=== PATIENT | male | born 1950 | race Caucasian/White ===

== ENCOUNTER → 2017-11-02 10:53 | Outpatient (CLI) | payer MEDICARE, OTHER, SELFPAY ==
[2017-11-02 13:01] LABS: Iron 132 ug/dL (50-175); Total Iron Binding Capacity 381 ug/dL (250-450); Transferrin Sat 35 % (20-55)
[2017-11-02 13:04] LABS: Abs Immature Grans 0.02 k/cumm (0.0-0.09); Absolute Basophil Count 0.04 k/cumm (0.0-0.2); Absolute Eosinophil Count 0.35 k/cumm (0.0-0.7); Absolute Lymphocyte Count 2.35 k/cumm (1.2-3.4); Absolute Monocyte Count 0.51 k/cumm (0.11-0.7); Absolute Neutrophil Count 3.22 k/cumm (1.2-6.7); Basophils % 0.6; Eosinophils % 5.4; HCT 43.2 % (40.0-50.0); HGB 15.1 g/dL (13.5-17.5); Immature Grans % 0.3; Lymphocytes % 36.2; Mean Corpuscular Hemoglobin 29.7 pg (27.0-33.0); Mean Platelet Volume 10.7 fL (8.0-11.0); Monocytes % 7.9; Neutrophils % 49.6; Platelet Count 159 x1000/uL (130-400); RBC 5.08 m/cumm (4.50-6.00); RBC Distribution Width 14.1 % (11.8-14.1); White Blood Cell Count 6.49 k/cumm (4.4-10.8)
[2017-11-02 13:23] LABS: ALT 58 U/L (12-78); AST 32 U/L (15-37); Albumin 3.6 g/dL (3.4-5.0); Alkaline Phosphatase 96 U/L (46-116); Anion Gap 8.6 mmol/L (3-11); BUN 22 mg/dL (7-18); Bilirubin, Total 0.7 mg/dL (0.2-1.0); CO2 27.4 mmol/L (21.0-32.0); CREATININE 0.87 mg/dL (0.70-1.30); Calcium 8.6 mg/dL (8.5-10.1); Chloride 106 mmol/L (98-107); Ferritin 83 ng/mL (8-388); Folate 8.4 ng/mL (8.6-20.0); Glucose 108 mg/dL (70-100); Potassium 4.4 mmol/L (3.5-5.1); Sodium 142 mmol/L (136-145); Total Protein 7.2 g/dL (6.4-8.2); Vitamin B12 593 pg/mL (193-986)
[2017-11-02 14:31] LABS: Hemoglobin A1C 5.8 % (4.5-6.2)
[2017-11-02 14:48] LABS: ESR 21 MM/HR (1-20)
[2017-11-02 22:02] LABS: CRP, High Sensitivity 2.22 mg/L
== END ==
PROVIDERS: PCP Internal Medicine; Visit Provider Internal Medicine
DX: D64.9 Anemia, unspecified (principal); I10 Essential (primary) hypertension; E11.9 Type 2 diabetes mellitus without complications; E83.119 Hemochromatosis, unspecified; M17.11 Unilateral primary osteoarthritis, right knee
CPT/HCPCS: 36415; 80053; 85652; 86141; 82607; 82728; 82746; 83036; 83540; 83550; 85025

== ENCOUNTER 2018-02-04 08:38 | Outpatient (CLI) | payer MEDICARE, SELFPAY ==
[2018-02-04 11:51] LABS: Ferritin 92 ng/mL (8-388)
== END 2018-02-04 08:58 ==
PROVIDERS: PCP Internal Medicine; Visit Provider Internal Medicine
DX: E83.110 Hereditary hemochromatosis (principal)
CPT/HCPCS: 36415; 82728

== ENCOUNTER 2018-04-19 01:33 | Outpatient (CLI) | payer MEDICARE, SELFPAY ==
[2018-04-19 12:43] LABS: HCT 44.9 % (40.0-50.0); HGB 15.8 g/dL (13.5-17.5)
== END 2018-04-19 01:53 ==
PROVIDERS: PCP Internal Medicine; Visit Provider Internal Medicine
DX: E11.9 Type 2 diabetes mellitus without complications (principal); R35.1 Nocturia; E83.119 Hemochromatosis, unspecified; Z12.5 Encounter for screening for malignant neoplasm of prostate; D35.1 Benign neoplasm of parathyroid gland
CPT/HCPCS: 36415; 84153; 83036; 85014; 85018

== ENCOUNTER 2018-07-06 01:27 | Outpatient (CLI) | payer MEDICARE, SELFPAY ==
[2018-07-06 12:01] LABS: ALT 61 U/L (12-78); AST 30 U/L (15-37); Albumin 3.6 g/dL (3.4-5.0); Alkaline Phosphatase 88 U/L (46-116); Anion Gap 9.7 mmol/L (3-11); BUN 19 mg/dL (7-18); CO2 27.3 mmol/L (21.0-32.0); Chloride 107 mmol/L (98-107); Ferritin 112 ng/mL (8-388); Glucose 121 mg/dL (70-100); Potassium 4.2 mmol/L (3.5-5.1); Sodium 144 mmol/L (136-145); Total Protein 7.1 g/dL (6.4-8.2)
[2018-07-06 12:02] LABS: Folate > 20.0 ng/mL (8.6-20.0)
== END 2018-07-06 01:47 ==
PROVIDERS: PCP Internal Medicine; Visit Provider Internal Medicine
DX: E83.119 Hemochromatosis, unspecified (principal); E11.9 Type 2 diabetes mellitus without complications; I10 Essential (primary) hypertension
CPT/HCPCS: 36415; 80053; 82728; 82746

== ENCOUNTER 2018-07-20 04:22 | Outpatient (CLI) | payer MEDICARE, OTHER, SELFPAY ==
[2018-07-20 11:27] LABS: TSH (W/Ref FT4) 0.85 uIU/mL (0.358-3.74)
== END 2018-07-20 04:42 ==
PROVIDERS: PCP Internal Medicine; Visit Provider Internal Medicine
DX: R00.0 Tachycardia, unspecified (principal)
CPT/HCPCS: 36415; 84443

== ENCOUNTER 2018-12-22 02:22 | Outpatient (CLI) | payer MEDICARE, OTHER, SELFPAY ==
[2018-12-22 11:54] LABS: Iron 149 ug/dL (50-175); Total Iron Binding Capacity 352 ug/dL (250-450); Transferrin Sat 42 % (20-55)
[2018-12-22 12:02] LABS: Hemoglobin A1C 5.9 % (4.5-6.2)
[2018-12-22 12:10] LABS: ALT 57 U/L (16-63); AST 35 U/L (15-37); Albumin 3.7 g/dL (3.4-5.0); Alkaline Phosphatase 88 U/L (46-116); Anion Gap 8.3 mmol/L (3-11); BUN 21 mg/dL (7-18); Bilirubin, Total 1.4 mg/dL (0.2-1.0); CO2 27.7 mmol/L (21.0-32.0); CREATININE 0.95 mg/dL (0.70-1.30); Calcium 8.9 mg/dL (8.5-10.1); Chloride 105 mmol/L (98-107); Ferritin 128 ng/mL (8-388); Glucose 130 mg/dL (70-100); Potassium 4.4 mmol/L (3.5-5.1); Sodium 141 mmol/L (136-145); Total Protein 7.2 g/dL (6.4-8.2)
== END 2018-12-22 02:42 ==
PROVIDERS: PCP Internal Medicine; Visit Provider Internal Medicine
DX: E11.9 Type 2 diabetes mellitus without complications (principal); E83.119 Hemochromatosis, unspecified
CPT/HCPCS: 36415; 80053; 82728; 83036; 83540; 83550

== ENCOUNTER 2019-08-31 07:45 | Outpatient (CLI) | payer MEDICARE, OTHER, SELFPAY ==
--- NOTE | 2019-08-31 13:42 | DI.RAD_ITS ---
EXAM: XR KNEE RT 3V AP,LAT,ARMOND CLINICAL HISTORY: right knee pain, DJD, M19.90-unspecified OA. TECHNIQUE: 2D digital imaging was performed. COMPARISON: No exams were available for comparison FINDINGS: Moderate narrowing and mild periarticular spurring seen in the medial femoral tibial joint space. Th e joint spaces are otherwise well maintained. Enthesophytes are seen in the patella. The bones are intact and normally mineralized. Vascular calcifications are present. IMPRESSION: Mild osteoarthritis of the right knee. DATA REPOSITORY: RADIATION DOSE DELIVERED:
== END 2019-08-31 08:05 ==
PROVIDERS: PCP Family Medicine; Visit Provider Family Medicine
DX: M25.561 Pain in right knee (principal); M17.11 Unilateral primary osteoarthritis, right knee
CPT/HCPCS: 73562

== ENCOUNTER 2019-09-30 03:03 | Outpatient (CLI) | payer MEDICARE, OTHER, SELFPAY ==
[2019-09-30 12:27] LABS: HGB 14.2 g/dL (13.5-17.5); Mean Corp. HGB Concentration 33.8 g/dL (32.0-36.0); Mean Corpuscular Hemoglobin 29.6 pg (27.0-33.0); Mean Corpuscular Volume 87.5 fL (80-95); Mean Platelet Volume 11.1 fL (8.0-11.0); Platelet Count 163 x1000/uL (130-400); RBC Distribution Width 14.3 % (11.8-14.1)
[2019-09-30 12:40] LABS: Hemoglobin A1C 6.3 % (3.8-5.6)
[2019-09-30 12:44] LABS: ALT 62 U/L (16-63); AST 30 U/L (15-37); Albumin 3.8 g/dL (3.4-5.0); Alkaline Phosphatase 78 U/L (46-116); Anion Gap 10.5 mmol/L (3-11); BUN 29 mg/dL (7-18); CO2 24.5 mmol/L (21.0-32.0); CREATININE 1.31 mg/dL (0.70-1.30); Calcium 9.2 mg/dL (8.5-10.1); Calculated LDL 107 mg/dL (<100); Chloride 106 mmol/L (98-107); Cholesterol 168 mg/dL (<200); Estimated GFR 54.09 (mL/min/1.73m2); Glucose 145 mg/dL (74-106); HDL Cholesterol 34 mg/dL (40-60); Potassium 4.2 mmol/L (3.5-5.1); Sodium 141 mmol/L (136-145); Total Protein 7.3 g/dL (6.4-8.2); Triglyceride 135 mg/dL (<150)
== END 2019-09-30 03:23 ==
PROVIDERS: PCP Family Medicine; Visit Provider Family Medicine
DX: E11.9 Type 2 diabetes mellitus without complications (principal); I10 Essential (primary) hypertension; E83.119 Hemochromatosis, unspecified; M19.90 Unspecified osteoarthritis, unspecified site
CPT/HCPCS: 36415; 80053; 80061; 85027; 83036

== ENCOUNTER 2019-10-13 02:09 | Outpatient (CLI) | payer MEDICARE, OTHER, SELFPAY ==
[2019-10-13 13:07] LABS: Anion Gap 11.8 mmol/L (3-11); BUN 26 mg/dL (7-18); CO2 25.2 mmol/L (21.0-32.0); CREATININE 1.37 mg/dL (0.70-1.30); Chloride 106 mmol/L (98-107); Estimated GFR 51.37 (mL/min/1.73m2); Glucose 147 mg/dL (74-106); Potassium 4.2 mmol/L (3.5-5.1); Sodium 143 mmol/L (136-145)
== END 2019-10-13 02:29 ==
PROVIDERS: PCP Family Medicine; Visit Provider Family Medicine
DX: E11.9 Type 2 diabetes mellitus without complications (principal)
CPT/HCPCS: 36415; 80048

== ENCOUNTER 2019-10-27 02:32 | Outpatient (CLI) | payer MEDICARE, OTHER, SELFPAY ==
[2019-10-27 13:33] LABS: Ferritin 240 ng/mL (26-388)
== END 2019-10-27 02:52 ==
PROVIDERS: PCP Family Medicine; Visit Provider Family Medicine
DX: E83.119 Hemochromatosis, unspecified (principal)
CPT/HCPCS: 36415; 82728

== ENCOUNTER 2019-12-08 00:44 | Outpatient (CLI) | payer MEDICARE, OTHER, SELFPAY ==
--- NOTE | 2019-12-08 07:15 | DI.NM_ITS ---
APPROVED REPORT Exam: Exercise Treadmill Patient Location: Out-Patient Room/Bed: Stress Nurse: Amrita Norris RN BMI: 41.03 Baseline Rhythm: Sinus Rhythm Indications: Patient reports increasing SOB with exertion and fatigue over the last couple of years. He states he falls asleep when sitting down several times throughout the day. Notes from patient???s record from community clinic visit on 11/29/2019 suggests Q waves from an old inferior NE. Medical History Medical History: Abnormal EKG with Q waves in inferior leads, Sleep Apnea on CPAP. Cardiac Medications: CoQnol, Berberine, Pro Norton, Lipotropic Complex. Allergies: Gabapentin, Smoked Meats. Cardiac Risk Factors: FHX of CAD, HTN, Diabetes (non-insulin) Previous Cardiac Procedures: None Pretest Chest Pain Characteristics: No chest pain Exercise History: Physically active Physical Disabilities: None Lung Sounds: Clear to auscultation Heart Sounds: Regular Stress Test Details Test: Exercise stress testing was performed using a Zeus protocol. Nuclear Acquisition: Rest Tc-99m/Stress Tc-99m 1 day Rest Isotope: Tc-99m Sestamibi. Dose: 15.2 Date: 12/08/2019 Injection Time: 0930 Stress Isotope: Tc-99m Sestamibi. Dose: 46.0 Date: 12/08/2019 Injection Time: 1120 HR Resting HR Supine: 75 bpm Max Heart Rate (APMHR): 149 bpm Resting HR Standin bpm Target HR (85% APMHR): 126 bpm Max HR Achieved: 140 bpm % of APMHR: 93 HR response to stress: Normal HR response to stress BP Resting BP Supine: 152/88 mmHg Resting BP Standin/82 mmHg Max BP: 190/68 mmHg BP response to stress: Normal blood pressure response to stress. ECG Resting ECG: Sinus Rhythm Ectopy: Rare PAC's Stress ECG: Sinus Tachycardia ST Change: No significant ST segment changes noted. Arrhythmia: None Recovery ECG: Sinus Rhythm Recovery ST Change: Normal Recovery Arrhythmia: None Clinical Reason for Termination: Dyspnea, Fatigue, Leg Pain Stress Symptoms: No reported per patient. Exercise duration: 5 min39 sec Highest Stage Reached: Stage 2: 2.5 mph at 12% grade. Exercise capacity: 7.05 METs Functional Capacity: Mildly deminished capacity Stress ECG Conclusion 1. The patient exercised for 6 minutes (7 METS). 2. Patient had no symptom suggestive of ischemia. Stress Test Summary STAGE Time (mins) Speed (mph) Grade (%) HR BP SYMPTOMS METS Supine 75 152/88 Standing 81 148/82 1 3 1.7 10 114 162/74 4.6 1 min recovery 114 190/68 3 min recovery 91 184/78 6 min recovery 87 162/82 MPI Conclusion Ejection fraction was 52% with stress. There were no wall motion abnormalities. A small area of decreased perfusion of the apex likely represents artifact. This is a normal SPECT stress test. Radiologist Interpretation Radiologist agrees with Recycling Manager's Interpretation. Radiologist Interpretation by: Alexx Wallace MD Interpretation Date/Time: 12/09/2019 08:38:16
== END 2019-12-08 01:04 ==
PROVIDERS: PCP Family Medicine; Visit Provider Family Medicine
DX: R94.31 Abnormal electrocardiogram [ECG] [EKG] (principal); R06.02 Shortness of breath
CPT/HCPCS: 78452; 93306; 93017

== ENCOUNTER 2020-05-14 14:53 | Outpatient (CLI) | payer MEDICARE, OTHER, SELFPAY ==
--- NOTE | 2020-05-14 14:55 | DI.RAD_ITS ---
EXAM: XR KNEE LT 3V AP,LAT,ARMOND CLINICAL HISTORY: L knee pain. TECHNIQUE: 2D digital imaging was performed. COMPARISON: CR XR KNEE RT 3V AP,LAT,ARMOND from 08/31/2019 FINDINGS: There is no evidence fracture although there does appear to be a small amount of increased joint flui d. Calcifications noted at the insertion site of the quadriceps tendon on the anterosuperior patella as well as at the level of the insertion site of the patellar ligament on the inferior pole of the p atella. There is moderate-advanced narrowing of the medial compartment of the knee seen on the stand ing view. Lateral compartment appears unremarkable. Mild degenerative changes are noted in the velasco llofemoral compartment. Bone density normal. There are no osseous lesions. IMPRESSION: Degenerative changes as described above. DATA REPOSITORY: RADIATION DOSE DELIVERED:
== END 2020-05-14 14:54 | disposition home or self-care (01) ==
LOC: DIORS 14:53
PROVIDERS: PCP Family Medicine; Referring Provider Family Medicine; Visit Provider Student in an Organized Health Care Education/Training Program
DX: M25.562 Pain in left knee (principal); M17.12 Unilateral primary osteoarthritis, left knee; M17.11 Unilateral primary osteoarthritis, right knee
CPT/HCPCS: 20610; 73562; J1040

== ENCOUNTER → 2020-06-28 10:19 | Outpatient (BNVA) | payer MEDICARE, OTHER, SELFPAY | PROVIDERS: PCP Family Medicine; Referring Provider Family Medicine; Visit Provider Student in an Organized Health Care Education/Training Program | DX: M17.11 Unilateral primary osteoarthritis, right knee (principal); M17.12 Unilateral primary osteoarthritis, left knee; Z98.890 Other specified postprocedural states | CPT/HCPCS: 99213 ==

== ENCOUNTER 2020-10-10 10:15 | Outpatient (CLI) | payer MEDICARE, OTHER, SELFPAY ==
[2020-10-10 13:04] LABS: Hemoglobin A1C 5.9 % (<5.7)
[2020-10-10 13:19] LABS: Anion Gap 7.5 mmol/L (3-11); BUN 28 mg/dL (7-18); CO2 27.5 mmol/L (21.0-32.0); CREATININE 1.3 mg/dL (0.70-1.30); Calcium 9.4 mg/dL (8.5-10.1); Chloride 110 mmol/L (98-107); Estimated GFR 54.42 (mL/min/1.73m2); Ferritin 227 ng/mL (26-388); Glucose 125 mg/dL (74-106); Potassium 4.7 mmol/L (3.5-5.1); Sodium 145 mmol/L (136-145)
== END 2020-10-10 10:16 | disposition home or self-care (01) ==
LOC: LOS 10:16
PROVIDERS: PCP Family Medicine; Referring Provider Family Medicine; Visit Provider Family Medicine
DX: E87.1 Hypo-osmolality and hyponatremia (principal); D64.9 Anemia, unspecified; R73.9 Hyperglycemia, unspecified
CPT/HCPCS: 36415; 80048; 82728; 83036

== ENCOUNTER 2021-02-07 02:02 | Outpatient (CLI) | payer MEDICARE, OTHER, SELFPAY ==
[2021-02-07 12:41] LABS: HCT 44.8 % (40.0-50.0); HGB 14.8 g/dL (13.5-17.5); MCH 29.5 pg (27.0-33.0); MCV 89.4 fL (80-95); MPV 11.4 fL (8.0-11.0); Platelet Count 139 10^3/uL (130-400); RBC 5.01 10^6/uL (4.36-5.78); RDW 13.5 % (11.8-14.1); RDW-SD 43.8 fL; WBC 5.97 10^3/uL (4.4-10.8)
[2021-02-07 12:57] LABS: Iron 142 ug/dL (65-175); Total Iron Binding Capacity 345 ug/dL (250-450); Transferrin Sat 41 % (20-55)
[2021-02-07 13:08] LABS: COMMENT (LAB VIEW ONLY) 91.39 mg/dL; Microalb ug/mg Crea 5.6 ug/mg Cr
[2021-02-07 13:18] LABS: ALT 64 U/L (16-63); AST 32 U/L (15-37); Albumin 3.7 g/dL (3.4-5.0); Alkaline Phosphatase 95 U/L (46-116); BUN 30 mg/dL (7-18); Bilirubin, Total 0.9 mg/dL (0.2-1.0); CREATININE 1.3 mg/dL (0.70-1.30); Calcium 8.7 mg/dL (8.5-10.1); Calculated LDL 111 mg/dL (<100); Chloride 107 mmol/L (98-107); Cholesterol 177 mg/dL (<200); Estimated GFR 54.26 (mL/min/1.73m2); Ferritin 222 ng/mL (26-388); Glucose 161 mg/dL (74-106); HDL Cholesterol 36 mg/dL (40-60); Potassium 4.9 mmol/L (3.5-5.1); Sodium 144 mmol/L (136-145); Total Protein 7.2 g/dL (6.4-8.2); Triglyceride 150 mg/dL (<150)
[2021-02-07 13:46] LABS: Hemoglobin A1C 6.1 % (<5.7)
== END 2021-02-07 02:03 | disposition home or self-care (01) ==
LOC: LOS 02:02
PROVIDERS: PCP Family Medicine; Visit Provider Family Medicine
DX: I10 Essential (primary) hypertension (principal); E83.119 Hemochromatosis, unspecified; E11.9 Type 2 diabetes mellitus without complications; M17.0 Bilateral primary osteoarthritis of knee; D64.9 Anemia, unspecified
CPT/HCPCS: 36415; 80053; 80061; 85027; 82043; 82570; 82728; 83036; 83540; 83550

== ENCOUNTER → 2021-02-18 14:13 | Outpatient (BNVA) | payer MEDICARE, OTHER, SELFPAY | PROVIDERS: PCP Family Medicine; Referring Provider Family Medicine; Visit Provider Student in an Organized Health Care Education/Training Program | DX: M17.11 Unilateral primary osteoarthritis, right knee (principal); M17.12 Unilateral primary osteoarthritis, left knee | CPT/HCPCS: 99213 ==

== ENCOUNTER 2021-05-14 14:48 | Outpatient (CLI) | payer MEDICARE, OTHER, SELFPAY ==
--- NOTE | 2021-05-14 11:00 | DI.RAD_ITS ---
Exam(s) XR HIP RT COMPLETE AP PELVIS EXAM: XR HIP RT COMPLETE AP PELVIS CLINICAL HISTORY: 1 month right posterior hip pain, no trauma, M25.551 TECHNIQUE: COMPARISON: CR RT HIP COMPLETE AP PELVIS from 05/04/2017 FINDINGS: Four views were obtained. The cartilaginous joint spaces of the hips appear fairly well maintained. There are prominent trochanteric osteophytes noted bilaterally. There are moderate acetabular osteo phytes noted bilaterally. SI joints and lower lumbar spine show moderate degenerative changes. No evidence of fracture. IMPRESSION: Moderate degenerative changes both hips. RADIATION DOSE DELIVERED: Total DLP
== END 2021-05-14 15:08 ==
PROVIDERS: PCP Family Medicine; Visit Provider Family Medicine
DX: M25.551 Pain in right hip (principal); M16.0 Bilateral primary osteoarthritis of hip
CPT/HCPCS: 73502

== ENCOUNTER → 2021-06-28 09:14 | Outpatient (BNVA) | payer MEDICARE, OTHER, SELFPAY | PROVIDERS: PCP Family Medicine; Referring Provider Family Medicine; Visit Provider Student in an Organized Health Care Education/Training Program | DX: M16.11 Unilateral primary osteoarthritis, right hip (principal) | CPT/HCPCS: 99213 ==

== ENCOUNTER 2021-07-11 01:32 | Outpatient (CLI) | payer MEDICARE, SELFPAY ==
--- NOTE | 2021-07-11 07:45 | DI.RAD_ITS ---
Exam(s) RF JOINT INJECTION FLUORO GUID EXAM: RF JOINT INJECTION FLUORO GUID CLINICAL HISTORY: R HIP INJ UNDER FLUORO,primary oa rt hip, pain,m16.11 TECHNIQUE: Fluoroscopy provided. Radiologist not present. CONTRAST MATERIAL: None COMPARISON: No exams were available for comparison FINDINGS: Fluoroscopy was provided for therapeutic right hip injection.. Submitted image(s) reveal needle placement lateral aspect of the femoral head. Intra-articular contr ast injected Please refer to the procedure report for complete details. Cumulative Dose: evgeny Lieberman=914 mGy IMPRESSION: RADIATION DOSE DELIVERED:
--- NOTE | 2021-07-11 14:18 | W.PROCNOTE ---
Date of service: 07/11/21 Time of Service: 14:19 Procedure Note Date of procedure: 07/11/21 Procedure: Right Hip Injection with Fluoroscopic Guidance Surgeon/Proceduralist/Physician: Gold See Procedure Diagnosis: Right Hip Osteoarthritis Procedure Indications: Prateek has had persistent pain of the RIGHT hip and groin. Noninvasive measures have been tried. To serve as both diagnostic and therapeutic, an injection under fluoroscopy was recommended. I had discussed the risks of the procedure and the patient elected to proceed. Procedure Description: Prateek was greeted in the flouroscopy room. The correct side was identified and the consent was reviewed with the patient and signed. The patient was then placed in the supine position on the fluoroscopy table. The RIGHT hip was then prepped with Chloraprep. The anterolateral injection starting point was identiifed by bony landmarks and fluoroscopy. The skin and soft tissue in the tract of the injection was anesthetized with 1% Lidocaine. A spinal needle was then inserted deep into the hip joint at the level of the lateral femoral neck under fluoroscopic guidance. A small amount of Omnipaque solution was injected to confirm intraarticular placement. Once confirmed, the hip was injected with 6cc of 0.5% Bupivicaine and 80mg of Depo-Medrol. A bandaid was placed on the injection site. The patient tolerated the procedure well.
--- NOTE | 2021-07-11 14:32 | W.PROCNOTE ---
Date of service: 07/11/21 Time of Service: 14:20 Procedure Note Date of procedure: 07/11/21 Procedure: Right Hip Injection with Fluoroscopic Guidance Surgeon/Proceduralist/Physician: Gold See Procedure Diagnosis: Right Hip Pain Procedure Indications: Prateek has had persistent pain of the RIGHT hip and groin. Noninvasive measures have been tried. To serve as both diagnostic and therapeutic, an injection under fluoroscopy was recommended. I had discussed the risks of the procedure and the patient elected to proceed. Procedure Description: Prateek was greeted in the flouroscopy room. The correct side was identified and the consent was reviewed with the patient and signed. The patient was then placed in the supine position on the fluoroscopy table. The RIGHT hip was then prepped with Chloraprep. The anterolateral injection starting point was identiifed by bony landmarks and fluoroscopy. The skin and soft tissue in the tract of the injection was anesthetized with 1% Lidocaine. A spinal needle was then inserted deep into the hip joint at the level of the lateral femoral neck under fluoroscopic guidance. A small amount of Omnipaque solution was injected to confirm intraarticular placement. Once confirmed, the hip was injected with 6cc of 0.5% Bupivicaine and 80mg of Depo-Medrol. A bandaid was placed on the injection site. The patient tolerated the procedure well and noted improvement in pre-injection pain.
[2021-07-11] MEDS: Bupivacaine 0.5% Pres-Free 30 ML VIAL 5 ML IJ (14:37)
[2021-07-11] MEDS: methylPREDNISolone ACETATE 80 MG/ML VIAL IM (14:38)
[2021-07-11] MEDS: Omnipaque 300 MG/ML 10 ML BTL IJ (14:38)
== END 2021-07-11 01:52 ==
PROVIDERS: PCP Family Medicine; Visit Provider Student in an Organized Health Care Education/Training Program
DX: M16.11 Unilateral primary osteoarthritis, right hip (principal); M25.551 Pain in right hip
CPT/HCPCS: 20610; 77002; J1040

== ENCOUNTER 2021-07-11 02:18 | Outpatient (CLI) | payer MEDICARE, SELFPAY ==
[2021-07-11 10:48] LABS: Hemoglobin A1C 6.3 % (<5.7)
[2021-07-11 12:00] LABS: Anion Gap 8.2 mmol/L (3-11); BUN 26 mg/dL (7-18); CO2 25.8 mmol/L (21.0-32.0); CREATININE 1.3 mg/dL (0.70-1.30); Calcium 8.6 mg/dL (8.5-10.1); Chloride 107 mmol/L (98-107); Estimated GFR 54.26 (mL/min/1.73m2); FREE T4 1.02 ng/dL (0.76-1.46); Glucose 129 mg/dL (74-106); Potassium 4.3 mmol/L (3.5-5.1); Sodium 141 mmol/L (136-145)
[2021-07-11 18:25] LABS: T3,Free 3.9 pg/mL (2.8-5.3)
== END 2021-07-11 02:19 | disposition home or self-care (01) ==
LOC: LBO 02:19
PROVIDERS: PCP Family Medicine; Visit Provider Family Medicine
DX: E11.9 Type 2 diabetes mellitus without complications (principal); I10 Essential (primary) hypertension; R53.83 Other fatigue
CPT/HCPCS: 20610; 36415; 77002; 80048; 83036; 84439; 84443; 84481; J1040

== ENCOUNTER 2021-08-20 02:08 | Outpatient (RCR) | payer MEDICARE, SELFPAY ==
[2021-08-20] MEDS: Normal Saline Flush 10 ML SYR IVP (13:27)
[2021-08-20 13:28] LABS: HGB 13.9 g/dL (13.5-17.5)
[2021-08-20 13:52] LABS: Ferritin 283 ng/mL (26-388)
== END 2021-08-20 23:59 | disposition home or self-care (01) ==
LOC: INF 02:08
PROVIDERS: PCP Student in an Organized Health Care Education/Training Program; Visit Provider Physician Assistant Medical
DX: E83.119 Hemochromatosis, unspecified (principal)
CPT/HCPCS: 36415; 99195; 82728; 85018

== ENCOUNTER → 2021-09-05 08:32 | Outpatient (BNVA) | payer MEDICARE, SELFPAY | PROVIDERS: PCP Student in an Organized Health Care Education/Training Program; Referring Provider Student in an Organized Health Care Education/Training Program; Visit Provider Physician Assistant Surgical | DX: M16.11 Unilateral primary osteoarthritis, right hip (principal); M47.818 Spondylosis without myelopathy or radiculopathy, sacral and sacrococcygeal region | CPT/HCPCS: 99214 ==

== ENCOUNTER 2021-09-17 02:24 | Outpatient (RCR) | payer MEDICARE, SELFPAY ==
[2021-09-17 13:19] LABS: HGB 14.5 g/dL (13.5-17.5)
[2021-09-17 13:43] LABS: Ferritin 204 ng/mL (26-388)
== END 2021-09-19 23:59 | disposition home or self-care (01) ==
LOC: INF 02:24
PROVIDERS: PCP Student in an Organized Health Care Education/Training Program; Visit Provider Physician Assistant Medical
DX: E83.119 Hemochromatosis, unspecified (principal)
CPT/HCPCS: 96523; 99195; 82728; 85018

== ENCOUNTER → 2021-10-14 09:34 | Outpatient (BNVA) | payer MEDICARE, SELFPAY | PROVIDERS: PCP Student in an Organized Health Care Education/Training Program; Referring Provider Student in an Organized Health Care Education/Training Program; Visit Provider Physical Therapy Assistant | DX: I73.9 Peripheral vascular disease, unspecified (principal) | CPT/HCPCS: 93922; 99212 ==

== ENCOUNTER 2021-10-15 03:14 | Outpatient (RCR) | payer MEDICARE, SELFPAY ==
[2021-10-15] MEDS: Normal Saline Flush 10 ML SYR IVP (13:08)
[2021-10-15 13:22] LABS: HGB 14.1 g/dL (13.5-17.5)
[2021-10-15 13:48] LABS: Ferritin 156 ng/mL (26-388)
== END 2021-10-20 23:59 | disposition home or self-care (01) ==
LOC: INF 03:14
PROVIDERS: PCP Student in an Organized Health Care Education/Training Program; Visit Provider Physician Assistant Medical
DX: E83.119 Hemochromatosis, unspecified (principal)
CPT/HCPCS: 36415; 99195; 82728; 85018

== ENCOUNTER 2021-11-05 10:14 | Outpatient (CLI) | payer MEDICARE, SELFPAY ==
--- NOTE | 2021-11-05 06:00 | DI.RAD_ITS ---
Exam(s) XR PAIN CLINIC SACRIOILIAC 2V EXAM: XR PAIN CLINIC SACRIOILIAC 2V CLINICAL HISTORY: Dx: Sacroiliac joint dysfunction. TECHNIQUE: 2D and realtime digital imaging was performed. CONTRAST MATERIAL: None COMPARISON: No exams were available for comparison FINDINGS: Prostate was fight a during right sacroiliac joint injection/pain management therapy performed by Dr. Davila. See procedure report for details. IMPRESSION: RADIATION DOSE DELIVERED: evgeny Lieberman=14.98 mGy
[2021-11-05 10:27] VITALS: BP 147/83; PULSE 94; RESP 20; TEMP 37.1; O2SAT 98
[2021-11-05 10:53] VITALS: BP 138/88; PULSE 94; RESP 16; O2SAT 98
[2021-11-05] MEDS: methylPREDNISolone ACETATE 80 MG/ML VIAL IJ (11:03)
[2021-11-05] MEDS: Omnipaque 240 MG/ML 50 ML BTL IJ (11:04)
--- NOTE | 2021-11-05 11:12 | PDOC.PAIN ---
Pain Clinic Procedure Note Procedure Note Procedure Note: INTRA-ARTICULAR SI JOINT INJECTION Prateek Tapia has been referred to the [facility] for intra-articular SI joint injection. COMMENTS: He has pain directly over the right sacroiliac joint. Pre-procedure pain VAS was 5/10. Dx: Sacroiliac joint dysfunction Patient was interviewed and the medical record reviewed. There were no medical, pharmacologic, radiographic or other structural contraindications to attempting fluoroscopically guided intra-articular SI joint injection. Risks and expected side effects as well as potential benefit of the procedure were reviewed and voiced concerns addressed. The printed consent form was signed and witnessed. Standard time-out procedure was performed. Patient was placed in the prone position on the fluoroscopy table and automated blood pressure cuff and pulse oximeter applied. The skin entry point for approaching the right SI joint was identified under the most advantageous fluoroscopic view and marked. Following thorough Chlorhexadine preparation of the skin and draping and 1% lidocaine infiltration of the skin entry point and subcutaneous tissues, a 22 gauge spinal needle was placed under fluoroscopic guidance into the right SI joint was identified under the most advantageous fluoroscopic view and marked. Intra-articular placement was confirmed by a clear arthrogram resulting from the injection of 0.25ml Omnipaque 240, 1ml 1% lidocaine, and 80mg Depomedrol were injected intra-articularily with an initial reproduction of a significant component of the usual pain. The needle was flushed with 1 cc of 1% Lidocaine and removed. Vital signs were stable throughout the procedure and were as recorded in the docflowsheet by the nursing staff. If given, dosages of intravenous drugs for anxiolysis and analgesia were documented in MAR. Follow up plans and appointments were discussed with the patient. Post procedure instruction was given as documented in nursing documentation and having met discharge criteria, and was discharged from the [facility]. COMMENTS: Post-procedure pain VAS was 1/10. Abdullahi Davila DO, MPH [facility] [place]-Pain Management [facility] CC: Kathe Norwood DO
== END 2021-11-05 10:15 | disposition home or self-care (01) ==
LOC: PC 10:15
PROVIDERS: PCP Student in an Organized Health Care Education/Training Program; Visit Provider Preventive Medicine Occupational Medicine
DX: M53.3 Sacrococcygeal disorders, not elsewhere classified (principal)
CPT/HCPCS: 27096; 72200; J1040; Q9967

== ENCOUNTER → 2021-11-11 10:13 | Outpatient (BNVA) | payer MEDICARE, SELFPAY | PROVIDERS: PCP Student in an Organized Health Care Education/Training Program; Referring Provider Student in an Organized Health Care Education/Training Program; Visit Provider Student in an Organized Health Care Education/Training Program | DX: M53.3 Sacrococcygeal disorders, not elsewhere classified (principal) | CPT/HCPCS: 99214 ==

== ENCOUNTER 2021-11-12 02:50 | Outpatient (RCR) | payer MEDICARE, SELFPAY ==
[2021-11-12] MEDS: Normal Saline Flush 10 ML SYR IVP (13:23)
[2021-11-12 13:42] LABS: HGB 14.2 g/dL (13.5-17.5)
[2021-11-12 14:09] LABS: Ferritin 139 ng/mL (26-388)
== END 2021-11-20 23:59 | disposition home or self-care (01) ==
LOC: INF 02:50
PROVIDERS: PCP Student in an Organized Health Care Education/Training Program; Visit Provider Physician Assistant Medical
DX: E83.119 Hemochromatosis, unspecified (principal)
CPT/HCPCS: 36415; 82728; 85018

== ENCOUNTER 2021-12-23 04:09 | Outpatient (CLI) | payer MEDICARE, SELFPAY ==
[2021-12-23 12:45] LABS: ALT 61 U/L (16-63); AST 34 U/L (15-37); Albumin 3.5 g/dL (3.4-5.0); Alkaline Phosphatase 96 U/L (46-116); Anion Gap 8.2 mmol/L (3-11); BUN 27 mg/dL (7-18); Bilirubin, Direct 0.2 mg/dL (0.0-0.2); Bilirubin, Total 0.7 mg/dL (0.2-1.0); CO2 26.8 mmol/L (21.0-32.0); CREATININE 1.3 mg/dL (0.70-1.30); Chloride 105 mmol/L (98-107); Estimated GFR 58.01 (mL/min/1.73m2); Glucose 159 mg/dL (74-106); Potassium 4.3 mmol/L (3.5-5.1); Sodium 140 mmol/L (136-145); Total Protein 7.3 g/dL (6.4-8.2)
[2021-12-23 13:10] LABS: Ferritin 138 ng/mL (26-388)
== END 2021-12-23 04:10 | disposition home or self-care (01) ==
LOC: LOS 04:11
PROVIDERS: PCP Student in an Organized Health Care Education/Training Program; Visit Provider Physician Assistant Medical
DX: E83.119 Hemochromatosis, unspecified (principal); E11.9 Type 2 diabetes mellitus without complications; K75.81 Nonalcoholic steatohepatitis (NASH)
CPT/HCPCS: 36415; 80048; 80076; 82728

== ENCOUNTER → 2021-12-24 01:17 | Outpatient (CLI) | payer MEDICARE, SELFPAY ==
--- NOTE | 2021-12-24 06:45 | DI.CT_ITS ---
Exam(s) CT SINUS WO EXAM: CT SINUS WO CLINICAL HISTORY: Chronic nasal obstrution, polyps,j34.89. TECHNIQUE: Imaging Protocol: Axial computed tomography images with coronal and sagittal reformatted images were created and reviewed. No IV Contrast COMPARISON: No exams were available for comparison FINDINGS: MAXILLARY SINUSES: There is surgical defects in the medial cullen of both maxillary sinuses. There is mild mucosal thick ening in the floor both maxillary sinuses. No distinct fluid levels. Also some mild circumferential mucosal thickening in the left maxillary sinus. Mild opacification of ethmoidal air cells noted cole aterally. Both frontoethmoidal recesses are opacified and the entire left frontal sinus is opacified . Moderate mucosal thickening noted in the medial aspect of the right frontal sinus. Mastoid air cells are clear. No fluid in the middle ear cavities. No middle ear ossicular destructi on evident. There is no evidence of bone dehiscence. OSTIOMEATAL UNITS: Not well-defined and may be surgically absent. ETHMOIDAL AIR CELLS: Moderate opacification bilaterally. SPHENOID SINUSES: Minimal findings. FRONTAL SINUSES: Mucosal thickening in both frontal sinuses, more so on the left side. No bone destr uction. NASAL SEPTUM AND TURBINATES:Nasal septum is mildly deviated towards the right. There is a small righ t-sided nasal septal spur. There is aeration of both middle turbinates but no prominent obstructive annalee bullosa. IMPRESSION: 1. Multilevel mucosal findings as described above. 2. Evidence of previous endoscopic sinus surgery as described above. RADIATION DOSE DELIVERED: 135.64mGy.cm Total DLP DATA REPOSITORY: All CT scans at this facility are submitted to the National Radiology Data Registry (NRDR) Dose Index Registry (DIR) with the [employer] (ACR). RADIATION OPTIMIZATION: All CT scans at this facility use at least one of these dose optimization te chniques: automated exposure control; mA and/or kV adjustment per patient size (includes targeted exa ms where dose is matched to clinical indication); or iterative reconstruction.
== END ==
PROVIDERS: PCP Student in an Organized Health Care Education/Training Program; Visit Provider Registered Nurse Maternal Newborn
DX: J34.89 Other specified disorders of nose and nasal sinuses (principal)
CPT/HCPCS: 70486

== ENCOUNTER 2022-01-24 01:15 | Outpatient (RCR) | payer MEDICARE, SELFPAY ==
[2022-01-24] MEDS: Normal Saline Flush 10 ML SYR IVP (13:42)
[2022-01-24 13:44] LABS: HGB 13.9 g/dL (13.5-17.5)
[2022-01-24 14:14] LABS: Ferritin 144 ng/mL (26-388)
== END 2022-02-19 23:59 | disposition home or self-care (01) ==
LOC: INF 01:15
PROVIDERS: PCP Student in an Organized Health Care Education/Training Program; Visit Provider Physician Assistant Medical
DX: E83.119 Hemochromatosis, unspecified (principal)
CPT/HCPCS: 36415; 99195; 82728; 85018

== ENCOUNTER 2022-02-05 07:59 | Outpatient (REF) | payer MEDICARE, SELFPAY ==
[2022-03-06 10:17] LABS: Fungus Smear No Fungi Seen
== END 2022-02-05 08:00 | disposition home or self-care (01) ==
LOC: LBN 07:59
PROVIDERS: PCP Student in an Organized Health Care Education/Training Program; Referring Provider Student in an Organized Health Care Education/Training Program; Visit Provider Student in an Organized Health Care Education/Training Program
DX: L29.8 Other pruritus (principal); L30.8 Other specified dermatitis
CPT/HCPCS: 87102; 87206

== ENCOUNTER → 2022-02-05 11:59 | Outpatient (CLI) | payer MEDICARE, SELFPAY ==
--- NOTE | 2022-02-05 11:30 | DI.RAD_ITS ---
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 TECHNIQUE: 2D digital imaging was performed. COMPARISON: CR XR HIP RT COMPLETE AP PELVIS from 05/14/2021 CR XR PELVIS W OBLIQUES 3V from 02/05/2022 CR XR HIP RT AP LAT ONLY from 02/05/2022 CR XR SACRUM from 02/05/2022 FINDINGS: Bones: No fracture is present. No bony destructive lesion is seen. Enthesophytes are noted at both i liac wings as well as greater trochanters.. There is prominent spurring at both acetabula. The visu alized portions of the spine show prominent endplate osteophytes. SI Joints: No erosions. Some bony bridging is seen across the superior aspects of the SI joints. Hip joints: Joint spaces are maintained. Soft Tissue: Calcified aorta is normal in diameter. IMPRESSION: Some bony bridging is seen across the superior SI joints. Prominent enthesophytes at the iliac wings . Acetabular spurring. Prominent osteophytes of the spine consistent with DISH. DATA REPOSITORY: RADIATION DOSE DELIVERED:
== END ==
PROVIDERS: PCP Student in an Organized Health Care Education/Training Program; Visit Provider Student in an Organized Health Care Education/Training Program
DX: M47.818 Spondylosis without myelopathy or radiculopathy, sacral and sacrococcygeal region; M53.3 Sacrococcygeal disorders, not elsewhere classified; M16.11 Unilateral primary osteoarthritis, right hip; M76.22 Iliac crest spur, left hip; M76.21 Iliac crest spur, right hip
CPT/HCPCS: 72190; 72202; 72220; 73502

== ENCOUNTER 2022-02-17 08:02 | Day surgery (SDC) | payer MEDICARE, SELFPAY ==
[2022-02-17] VITALS (7 sets, daily range): BP systolic 98–155; BP diastolic 58–86; PULSE 78–86; RESP 11–18; TEMP 36.6; O2SAT 93–100; BMI 41.2
--- NOTE | 2022-02-17 08:57 | PDOC.DSDIS_ITS ---
Date of service: 02/17/22 Time of Service: 08:57 Discharge Plan Disposition Patient Disposition: HOME Condition: Good Discharge Details Attending Provider: Rafy Bailey Primary Care Provider: Kathe Norwood Home Meds and New Rx's Prescriptions: New cephalexin 500 mg tablet 500 mg PO TID 7 Days Qty: 21 0RF No Action (DME) lancets [OneTouch Delica Lancets] 33 gauge misc See Rx Instructions .ROUTE .MEDSUPPLY Qty: 100 4RF Rx Instructions: Once daily (DME) OneTouch Ultra Blue Test Strip Strip See Rx Instructions .ROUTE .MEDSUPPLY Qty: 100 4RF Rx Instructions: Check blood sugar once a day baclofen 10 mg tablet 10 mg PO BID MDD 20mg PRN (Reason: buttock muscle spasm) Qty: 20 0RF Rx Instructions: Trial for mm spasm pain tramadol 50 mg tablet See Rx Instructions PO DAILY PRN (Reason: pain) Qty: 56 1RF Rx Instructions: PO daily PRN; PO twice a day PRN; one to two tabs a day as needed pain meloxicam 15 mg tablet 15 mg PO DAILY Qty: 90 4RF fluticasone propionate [Flonase Allergy Relief] 50 mcg/actuation spray,suspension 2 spray intranasal DAILY 30 Days Qty: 16 6RF Rx Instructions: administer into each nostril berberine 500 mg PO AD Label Comments: 07/29/17-2 CAP AM 1 CAP PM/pps Co Qnol 100 mg PO DAILY PRN Pro [place] 650/450 1 cap PO BID PRN Water Ease 1 cap PO BID PRN prasterone (dhea) PO Rx Instructions: unknown strength Discharge Instructions Additional Instructions: My cell phone number is [phone]. Please call with any questions or concerns. If you cannot reach me and you feel this is an emergency, please proceed to the emergency room Stand Alone Forms: ENT-FESS Instr. Leo Referrals: Rafy Bailey MD [ [facility] STAFF PHYSICIAN] - (1 month, please call for appointment prior to patient's departure) DS: Diagnosis Discharge Diagnosis (1) Nasal polyp: Status: Acute (2) Mouth breathing: Status: Acute (3) Nasal obstruction: Status: Acute
[2022-02-17] MEDS: Lactated Ringers 1,000 ML 80 ML IV (09:00)
--- NOTE | 2022-02-17 09:19 | W.ANESPRE ---
General Info Date of Service Date Performed: 02/17/22 Height: 5 ft 11 in Weight: 134.2 kg Body Mass Index (BMI): 41.2 Surgical Procedure: Operation Date: 02/17/22 09:25 Proposed Procedure Side Surgeon p Polypectomy Rafy Bailey MD Meds Allergies and Home Medications Allergies Allergy/AdvReac Type Severity Reaction Status Date / Time gabapentin Allergy Intermediate Skin Rash Verified 02/17/22 08:21 Smoked Meats Allergy Mild Wheezing, Uncoded 02/17/22 08:21 weak, dizzy blood transfer AdvReac Unknown Oriental [employer] Uncoded 02/17/22 08:21 Reasons (Jehovah Witness) Home Medication Medication Instructions Recorded Berberine 500 mg PO AD 07/29/17 lancets 33 gauge (OneTouch Delica #100 ea 08/29/19 Lancets) blood sugar diagnostic (OneTouch #100 ea 10/10/20 Ultra Blue Test Strip) meloxicam 15 mg tablet 15 mg PO DAILY #90 tabs 11/11/21 Co Qnol 100 mg PO DAILY PRN 11/22/21 Pro [place] 1 cap PO BID PRN 11/22/21 Water Ease 1 cap PO BID PRN 11/22/21 baclofen 10 mg tablet 10 mg PO BID PRN buttock muscle 11/22/21 spasm #20 tabs fluticasone propionate 50 2 spray intranasal DAILY 30 days 12/12/21 mcg/actuation nasal #16 grams spray,suspension (Flonase Allergy Relief) prasterone (dhea) PO 01/02/22 tramadol 50 mg tablet See Rx Instructions PO DAILY PRN 02/04/22 pain #56 tab-caps cephalexin 500 mg tablet 500 mg PO TID 7 days #21 tabs 02/17/22 Current Visit Medications: Current Medications Generic Name Dose Route Start Last Admin Trade Name Freq PRN Reason Stop Dose Admin Ringer's Solution 1,000 mls @ 80 mls/hr 02/17/22 06:00 02/17/22 09:00 IV 03/16/22 23:59 80 mls/hr INFUSION DEE Administration Cefazolin Sodium/Dextrose 2 gm in 50 mls @ 100 mls/hr 02/17/22 06:00 Ancef Duplex IVPB 02/17/22 18:00 PREOP DEE Tranexamic Acid 1,000 mg/ 60 mls @ 360 mls/hr 02/17/22 06:00 Sodium Chloride IVPB 02/17/22 18:00 PREOP DEE IV Miscellaneous Supplies 1 each 02/17/22 06:00 Iv Access IV 03/16/22 23:59 DIRECTED DEE Sodium Chloride 0 ml 02/17/22 06:00 Normal Saline Flush 10 Ml Syr IV 03/16/22 23:59 PRN PRN Sodium Chloride 0 ml 02/17/22 06:00 Normal Saline 10 Ml Vial IJ 03/16/22 23:59 DIRECTED PRN Sterile Water 0 ml 02/17/22 06:00 Water,Injection,Sterile 10 Ml Vial IJ 03/16/22 23:59 DIRECTED PRN PFSH Active Problems Active Problems: Problem Status Onset Code Chronic pain 11/06/16 G89.29 No blood products 04/14/16 Z78.9 Essential hypertension I10 Diabetes mellitus E11.9 Erectile dysfunction N52.9 Restless leg syndrome G25.81 Osteoarthritis, knee M17.10 YEBOAH (nonalcoholic steatohepatitis) K75.81 Primary osteoarthritis of right hip M16.11 Hemochromatosis E83.119 Nasal obstruction J34.89 Daytime somnolence R40.0 SI joint arthritis M47.818 Mouth breathing R06.5 SI (sacroiliac) joint dysfunction M53.3 Chronic nasal congestion R09.81 Nasal polyp J33.9 Unspecified cirrhosis of liver K74.60 Pruritic dermatitis L29.9 Medical History Medical History Chronic pain syndrome 01/2021, tramadol, drug contract Advanced knee pain-advanced osteoarthritis Surgical History Surgical History Hx of bilateral cataract extraction Tobacco Smoking/Tobacco Use Status: Never Passive smoking exposure: Yes (as a child) Second hand exposure: Yes Alcohol Alcohol Intake: never Substance Use Substance use: Never Substance use type: does not use Vital Signs and Lab Results Vital Signs Most Recent Vital Signs in EMR: Most Recent Vital Signs Temp Pulse Resp BP Pulse Ox 36.6 C 86 18 155/86 H 100 02/17/22 08:24 02/17/22 08:24 02/17/22 08:24 02/17/22 08:24 02/17/22 08:24 Lab Results Blood Type / Crossmatch: No Data to Display Complete Blood Count: Hemoglobin 13.9 g/dL (13.5-17.5) 01/24/22 13:30 Complete Metabolic Panel: No Data to Display Liver Function Panel: No Data to Display Coagulation Panel: No Data to Display Cardiac Panel: No Data to Display Arterial Blood Gas: No Data to Display Venous Blood Gas: No Data to Display Pancreas Panel: No Data to Display Thyroid Panel: No Data to Display Infectious Disease: No Data to Display Blood Cultures: No Data to Display Toxicology Panel: No Data to Display Anesthesia Assessment and Plan Anesthesia History Personal History: No History of Anesthesia Complications Family History: No Family History of Anesthesia Complications Exercise Tolerance Exercise Tolerance: Metabolic Equivalents>4 Pertinent Negatives Pertinent Negatives: No Symptoms of GERD, No Major Cardiovascular Symptoms or Complaints, No Major Pulmonary Symptoms or Complaints and No History of CVA/TIA Cardiac & Pulmonary Exam Cardiac Exam: Normal S1/S2 Heart Sounds Pulmonary Exam: Clear Bilateral Breath Sounds Implantable Cardiac Device Does patient have a Pacemaker or an ICD?: No Airway Exam Known Difficult Airway: No Mallampati Class: 3 Mouth Opening: Normal (> 3cm) Thyromental Distance: Greater than 3 cm Neck Range of Motion: Full ROM Neck Circumference: Thick Teeth Condition: Normal Dentition (None loose, many missing. ) and Removable Dentures/Plates Upper (Upper partial) ASA Classification ASA Score: ASA 3 Emergency Case?: No NPO Status NPO Status: NPO Clears >2 hours, Solids >8 hours Anesthesia Plan Resuscitation Status: Full Code Anesthesia Technique: General Anesthesia Airway Planned: Endotracheal Tube Monitors Used: Standard Monitors Preoperative Comments:: Only checks his blood sugar once a month.
[2022-02-17] MEDS: Cocaine Nasal 4% 4 ML BTL (09:55)
[2022-02-17] MEDS: ceFAZolin 2 GM/50 ML BAG IVPB (09:55)
[2022-02-17] MEDS: Lidocaine 1% Pres-Free W/EPI 1/200,000 10 ML VIAL (10:00)
--- NOTE | 2022-02-17 10:14 | NASALBX_PTH ---
PATIENT: Prateek Tapia LOC: [facility] U#:[id number] AGE/SX: 71/M ROOM: RE02/17/[address]: Rafy Bailey MD : [id number] BED: DIS: 02/17/2022 SPEC #: [id number] RECD: 02/17/22 12:37 STATUS: LINDA REQ #: [id number] LATOYA: 02/17/22 10:[address]: Rafy Bailey DEPT: Surgical Specimen RECD BY: Debra Moreno ENTERED: 02/17/22 12:38 SP TYPE: NASALBX OTHR DR: Kathe Norwood DO Tissues: 1 - MUCOSA, NOS Procedures: GROSS AND MICRO LEVEL 3 Comments: [id number]
--- NOTE | 2022-02-17 10:27 | W.PM.OP ---
Date of service: 02/17/22 Time of Service: 10:27 Operative Note Operative Note DATE OF PROCEDURE: 02/17/22 PRE-OP DIAGNOSIS: Nasal polyps with bilateral nasal obstruction POST-OP DIAGNOSIS: same PROCEDURE: Functional endoscopic nasal surgery with bilateral nasal polypectomy. SURGEON: Rafy Bailey ANESTHESIA TYPE: General LMA/ETT Refer to Anesthesia Record ESTIMATED BLOOD LOSS: 10 PATHOLOGY: other (Nasal polyps, left-fragment only) COMPLICATIONS: None Patient was transported to: PACU Patient's condition: stable Indications: Patient with bilateral nasal polyposis resulting in nasal obstruction, this is proven medically recalcitrant. Options were explained to the family regarding further management. He elected to undergo the above procedure. His concurred. Consent was filled out and signed prior to surgery. H&P was reviewed there have been no changes. Findings: Bilateral nasal polyposis arising from the posterior tips of the middle turbinates, completely occluding the nasopharynx, no other nasal polyposis seen. Deviated nasal septum to the right. No evidence of infection Procedure Description: After obtaining an adequate level of general endotracheal anesthesia the patient was positioned in supine position and prepped and draped in appropriate fashion. Cocaine soaked nasal pledgets were placed in the nasal cavity bilaterally after injecting 1% lidocaine with 1/100,000 epinephrine into the inferior turbinates and middle turbinates bilaterally. 5 minutes was allowed to elapse and then the cocaine soaked nasal pledgets were removed. Using a 0 degree endoscope and a StraightShot microdebrider for debridement, the polyps were identified, and debrided completely. Once been accomplished bilaterally, both middle and superior meati were identified and examined revealing no polyposis. Bleeding was minimal and self-limited. The patient tolerated procedure well. Valsalva failed to induce any significant bleeding. The patient was then awakened and extubated by anesthesia and taken to recovery room in stable condition. I was present throughout the entire case.
--- NOTE | 2022-02-17 12:32 | W.ANESPOSTOP ---
Postoperative Evaluation Date, Time and Location Date Performed: 02/17/22 Time Performed: 11:10 Patient Location: Day Surgery Unit Vital Signs Most Recent Imported Vital Signs: Most Recent Vital Signs Temp Pulse Resp BP Pulse Ox 36.6 C 78 15 126/74 93 02/17/22 11:27 02/17/22 11:27 02/17/22 11:27 02/17/22 11:27 02/17/22 11:27 Pain Score Most Recent Pain Score: Most Recent Pain Score Pain Level 0 02/17/22 11:27 Assessment Mental Status: Awake (Alert & Oriented to Patient Baseline) Airway and Respiratory Function: Patent airway with normal (patient baseline) respiratory exam Cardiovascular Function: Hemodynamically Stable Hydration Status: Adequately Hydrated Nausea & Vomiting: No Nausea or Vomiting Pain: Pt. Denies Any Pain Peripheral Nerve Block: Patient did not receive a nerve block
== END 2022-02-17 11:55 | disposition home or self-care (01) ==
PROVIDERS: PCP Student in an Organized Health Care Education/Training Program; Visit Provider Otolaryngology
PROC: 0HB1XZZ Excision of Face Skin, External Approach (ICD-10-PCS; CPT 30115; principal; 2022-02-17 09:15)
DX: J33.0 Polyp of nasal cavity (principal); E11.9 Type 2 diabetes mellitus without complications; I10 Essential (primary) hypertension; J39.2 Other diseases of pharynx
CPT/HCPCS: 30115; 88305; 88304; J0690; J1100; J2704

== ENCOUNTER 2022-02-21 01:49 | Outpatient (RCR) | payer MEDICARE, SELFPAY ==
[2022-02-21] MEDS: Normal Saline Flush 10 ML SYR IVP (13:15)
[2022-02-21 13:19] LABS: HGB 14.1 g/dL (13.5-17.5)
[2022-02-21 13:44] LABS: Ferritin 111 ng/mL (26-388)
== END 2022-03-22 23:59 | disposition home or self-care (01) ==
LOC: INF 01:49
PROVIDERS: PCP Student in an Organized Health Care Education/Training Program; Visit Provider Physician Assistant Medical
DX: E83.119 Hemochromatosis, unspecified (principal)
CPT/HCPCS: 36415; 99195; 82728; 85018

== ENCOUNTER 2022-03-26 04:21 | Outpatient (RCR) | payer MEDICARE, SELFPAY ==
[2022-03-26] MEDS: Normal Saline Flush 10 ML SYR IVP (13:15)
[2022-03-26 13:25] LABS: HGB 14.1 g/dL (13.5-17.5)
[2022-03-26 13:52] LABS: Ferritin 73 ng/mL (26-388)
== END 2022-04-22 23:59 | disposition home or self-care (01) ==
LOC: INF 04:21
PROVIDERS: PCP Student in an Organized Health Care Education/Training Program; Visit Provider Physician Assistant Medical
DX: E83.119 Hemochromatosis, unspecified (principal)
CPT/HCPCS: 36415; 99195; 82728; 85018

== ENCOUNTER 2022-04-10 03:20 | Outpatient (CLI) | payer MEDICARE, SELFPAY ==
--- NOTE | 2022-04-10 06:30 | DI.MRI_ITS ---
Exam(s) MR LUMBAR SPINE WO EXAM: MR LUMBAR SPINE WO CLINICAL HISTORY: low back pain,osteophyte,dish,? spine path,failed pt,m54.50,m25.70,m48.10. TECHNIQUE: Multiplanar multisequence MRI of the Lumbar spine was performed. COMPARISON: CR XR SACRUM from 02/05/2022 CR XR SACROILIAC JOINTS from 02/05/2022 FINDINGS: Conus medullaris is at normal level. There is no evidence of conus mass nor subjacent clumping of in trathecal nerve roots to suggest arachnoiditis. The distal thecal sac appears unremarkable.There is no evidence of Tarlov intrasacral cysts nor other significant findings within the sacral canal Bones:There are no fractures nor ominous osseous lesions in the lumbar vertebral bodies and visualize d sacrum. With respect to the individual levels... T12-L1: Unremarkable L1-2: Normal disc height and signal. No disc herniation nor central canal stenosis.No foraminal steno sis L2-3: Large bridging right-sided osteophytes evident at this level with smaller osteophytes on the le ft side. Relatively preserved disc height evident. There is symmetrical annular bulging without a d ominant disc herniation. Mild central canal stenosis which is related to developmental short AP dime nsions of the pedicles. Also some degenerative change in the facet joints.There is no significant fo raminal stenosis at this level. L3-4: This level exhibits anterolateral bridging osteophytes. There is severe central spinal canal s tenosis at this level due to broad annular bulging, short AP dimensions the pedicles, and some degene rative change in the facet joints and ligamentum flavum hypertrophy. The bulging annulus extends int o the exiting right neural foramen floor but with out significant foraminal stenosis on either side a t this level. L4-5: This level exhibits asymmetric disc space narrowing, more so on the left than the right side an d there are prominent bridging anterolateral left osteophytes evident at this level. There is mild a nnular bulging without a dominant disc herniation at this level and central canal dimensions are lowe r normal. There is no foraminal stenosis on the right side. On the left side there is more prominen t facet arthropathy and disc height loss but exiting left neural foramen is patent without prominent foraminal stenosis. L5-S1: This level exhibits disc space narrowing which is more prominent on the right than the left si de. There is broad annular bulging but no central spinal canal stenosis. Facet joints appear unrema rkable. No significant foraminal stenosis. Soft tissues: paraspinal soft tissues appear unremarkable. IMPRESSION: 1. Findings as described per individual level above. However, no significant findings appear to be a t L3-4 level where there is severe central spinal canal stenosis due to short AP dimensions of the pe dicles, broad annular bulging and some degenerative change in both facet joints. Milder central сергей l stenosis noted at L2-3 level. 2. No significant foraminal stenosis demonstrated. 3. No significant osseous lesions nor abnormal marrow signal. DATA REPOSITORY:
== END 2022-04-10 03:40 ==
LOC: DI 03:20
PROVIDERS: PCP Student in an Organized Health Care Education/Training Program; Visit Provider Student in an Organized Health Care Education/Training Program
DX: M48.17 Ankylosing hyperostosis [Forestier], lumbosacral region (principal); M54.59 Other low back pain; M25.78 Osteophyte, vertebrae; M51.37 Other intervertebral disc degeneration, lumbosacral region
CPT/HCPCS: 72148

== ENCOUNTER 2022-04-23 03:41 | Outpatient (RCR) | payer MEDICARE, SELFPAY ==
[2022-04-23 13:23] LABS: HGB 14.4 g/dL (13.5-17.5)
[2022-04-23 13:51] LABS: Ferritin 77 ng/mL (26-388)
== END 2022-05-20 23:59 | disposition home or self-care (01) ==
LOC: INF 03:41
PROVIDERS: PCP Student in an Organized Health Care Education/Training Program; Visit Provider Physician Assistant Medical
DX: E83.119 Hemochromatosis, unspecified (principal)
CPT/HCPCS: 36415; 82728; 85018

== ENCOUNTER 2022-06-18 01:43 | Outpatient (RCR) | payer MEDICARE, SELFPAY ==
[2022-05-21 13:01] LABS: HGB 14.6 g/dL (13.5-17.5)
[2022-05-21] MEDS: Normal Saline Flush 10 ML SYR IVP (13:02)
[2022-05-21 13:28] LABS: Ferritin 93 ng/mL (26-388)
[2022-06-18 13:07] LABS: HGB 14.8 g/dL (13.5-17.5)
[2022-06-18 13:31] LABS: Ferritin 115 ng/mL (26-388)
== END 2022-06-20 23:59 | disposition home or self-care (01) ==
LOC: INF 01:43
PROVIDERS: PCP Student in an Organized Health Care Education/Training Program; Visit Provider Physician Assistant Medical
DX: E83.119 Hemochromatosis, unspecified (principal)
CPT/HCPCS: 36415; 82728; 85018

== ENCOUNTER 2022-07-03 01:50 | Outpatient (CLI) | payer MEDICARE, SELFPAY ==
[2022-07-03 12:16] LABS: Anion Gap 8.1 mmol/L (3-11); BUN 23 mg/dL (7-18); CO2 23.9 mmol/L (21.0-32.0); CREATININE 1.4 mg/dL (0.70-1.30); Calcium 8.9 mg/dL (8.5-10.1); Chloride 108 mmol/L (98-107); Estimated GFR 53.07 (mL/min/1.73m2); Glucose 226 mg/dL (74-106); Sodium 140 mmol/L (136-145)
[2022-07-03 12:20] LABS: Hemoglobin A1C 7.8 % (<5.7)
== END 2022-07-03 01:51 | disposition home or self-care (01) ==
LOC: LOS 01:50
PROVIDERS: PCP Student in an Organized Health Care Education/Training Program; Visit Provider Student in an Organized Health Care Education/Training Program
DX: E11.9 Type 2 diabetes mellitus without complications (principal); I10 Essential (primary) hypertension
CPT/HCPCS: 36415; 80048; 83036

== ENCOUNTER 2022-07-16 02:45 | Outpatient (RCR) | payer MEDICARE, SELFPAY ==
[2022-07-16 13:43] LABS: Ferritin 86 ng/mL (26-388)
== END 2022-07-20 23:59 | disposition home or self-care (01) ==
LOC: INF 02:45
PROVIDERS: PCP Student in an Organized Health Care Education/Training Program; Visit Provider Physician Assistant Medical
DX: E83.119 Hemochromatosis, unspecified (principal)
CPT/HCPCS: 36415; 82728; 85018

== ENCOUNTER 2022-08-13 04:18 | Outpatient (RCR) | payer MEDICARE, SELFPAY ==
[2022-08-13 13:30] LABS: HCT 39.8 % (40.0-50.0); HGB 13.8 g/dL (13.5-17.5)
[2022-08-13] MEDS: Normal Saline Flush 10 ML SYR IVP (13:32)
[2022-08-13 13:53] LABS: Ferritin 78 ng/mL (26-388)
== END 2022-08-20 23:59 | disposition home or self-care (01) ==
LOC: INF 04:18
PROVIDERS: PCP Student in an Organized Health Care Education/Training Program; Visit Provider Physician Assistant Medical
DX: E83.118 Other hemochromatosis (principal)
CPT/HCPCS: 36415; 82728; 85014; 85018

== ENCOUNTER 2022-10-08 03:41 | Outpatient (RCR) | payer MEDICARE, SELFPAY ==
[2022-10-08] MEDS: Normal Saline Flush 10 ML SYR IVP (13:02)
[2022-10-08 13:24] LABS: HCT 41.8 % (40.0-50.0); HGB 14.3 g/dL (13.5-17.5)
[2022-10-08 13:44] LABS: Ferritin 87 ng/mL (26-388)
== END 2022-10-20 23:59 | disposition home or self-care (01) ==
LOC: INF 03:41
PROVIDERS: PCP Student in an Organized Health Care Education/Training Program; Visit Provider Physician Assistant Medical
DX: E83.118 Other hemochromatosis (principal)
CPT/HCPCS: 36415; 99195; 82728; 85014; 85018

== ENCOUNTER 2022-12-03 02:41 | Outpatient (RCR) | payer MEDICARE, SELFPAY ==
[2022-12-03 13:44] LABS: HCT 41.8 % (40.0-50.0); HGB 14.4 g/dL (13.5-17.5)
[2022-12-03 14:16] LABS: Ferritin 108 ng/mL (26-388)
== END 2022-12-20 23:59 | disposition home or self-care (01) ==
LOC: INF 02:41
PROVIDERS: PCP Student in an Organized Health Care Education/Training Program; Visit Provider Physician Assistant Medical
DX: E83.118 Other hemochromatosis (principal)
CPT/HCPCS: 36415; 82728; 85014; 85018

== ENCOUNTER 2022-12-25 11:44 | Outpatient (CLI) | payer MEDICARE, SELFPAY ==
--- NOTE | 2022-12-25 06:00 | DI.RAD_ITS ---
Exam(s) XR PAIN CLINIC LUMBAR SP 2V EXAM: XR PAIN CLINIC LUMBAR SP 2V CLINICAL HISTORY: DX: Lumbar spondylosis TECHNIQUE: 2D and realtime digital imaging was performed. Radiologist not present. CONTRAST MATERIAL: None. COMPARISON: No exams were available for comparison FINDINGS: Fluoroscopy was provided for pain management therapy. Please refer to procedure report or details. Radiation Exposure Index: Ka,r=35.78 mGy IMPRESSION: As above. RADIATION DOSE DELIVERED:
[2022-12-25 11:51] VITALS: BP 164/93; PULSE 91; RESP 20; TEMP 36.6; O2SAT 99
[2022-12-25 12:37] VITALS: BP 154/96; PULSE 105; RESP 16; O2SAT 94
[2022-12-25] MEDS: Omnipaque 240 MG/ML 50 ML BTL IJ (12:38)
[2022-12-25] MEDS: Bupivacaine 0.5% Pres-Free 10 ML VIAL IJ (12:38)
--- NOTE | 2022-12-25 12:40 | PDOC.PAIN_ITS ---
Date of service: 12/25/22 Time of Service: 12:40 Pain Managment Procedure Note Procedure Note Procedure Note: PROCEDURE NOTE Bilateral Lumbar Medial Branch Blocks Date of Service: December 25, 2022 Patient: Prateek Tapia Provider: Abdullahi Davila DO, MPH Prateek Tapia has been referred to the [facility] for lumbar medial branch blocks. Pre-operative diagnosis: Lumbar Spondylosis without Myelopathy Post-operative diagnosis: Same Pre-procedure pain: VAS= 8/10 COMMENTS: His pain is the same at it was when I evaluated him in the clinic. Mery was interviewed and the medical records were reviewed. There were no medical, pharmacologic, radiographic or other structural contraindications to attempting fluoroscopically guided local anesthetic lumbar medial branch blocks. Risks and potential side effects were discussed. I also discussed the potential benefit(s) of the procedure with Prateek, and voiced concerns were addressed. After Prateek was completely informed about the procedure, the printed consent form was signed. A standard time-out procedure was performed. Prateek was placed in the prone position on the fluoroscopy table. Automated bl ood pressure cuff and pulse oximeter were applied. The skin entry points for approaching the anatomic target points of the segmental medial branches of bilateral L3,L4,L5 were identified with fluoroscopy and marked. The skin at the target site area was thoroughly prepared with Chlorhexadine. The skin was then draped. Next, a 25 gauge 3.5 spinal needle was placed under fluoroscopic guidance down on to the target point (the articular pillar) for each respective segmental medial branch. Position was confirmed in A/P and lateral views. Aspiration revealed no blood or clear fluid. Next, 0.25ml of omnipaque 240 was injected at each level. No contrast following a vascular or neural pattern was visualized under continuous fluoroscopy. Next, 0.25 ml of preservative-free 0.5% bupivicaine was injected at each level. There was no unusual discomfort expressed by Prateek. The needles were withdrawn without difficulty. (49 mls of Omnipaque was wasted) Prateek was observed and was without hemodynamic, neurologic, or allergic reactions.? Fluoroscopic images were digitally archived. Provacative testing using the Modified Bob's facet loading test- Left side Right Side Directly before the block VAS (0-10) = 8/10 VAS (0-10) = 8/10 Five minutes after the block VAS (0-10) = 3/10 VAS (0-10) = 3/10 Percentage relief obtained with this diagnostic block 80% 80% Any improved physical functioning directly after the blocks? Able to move much easier Follow up plans and appointments were discussed with Prateek. Prateek was instructed to keep careful note of how the usual pain was modified by these injections. Specifically, to keep a pain diary for the next 4 hours using a numeric pain scale of 0-10 and report these results. Post procedure instruction was given as documented in the nursing documentation and having met discharge criteria, the patient was [facility]. Based on the medial branches blocked today, if they patient has adequate relief and we are able to proceed to radiofrequency ablation, the treatment should result in the denervation of the bilateral L4-L5 and L5-S1 facet joints. We would expect to denervate a total of 4 facets during the radiofrequency ablation. COMMENTS: No apparent complications. Post-procedure pain: VAS= 3/10 Prateek will call back with 0-4 hour post-procedure pain scores. I personally performed the entire procedure. ABDULLAHI DAVILA DO, MPH ABPM&R-subspecialty board certification in Pain Medicine [facility] [facility]
== END 2022-12-25 11:45 | disposition home or self-care (01) ==
LOC: PC 11:44
PROVIDERS: PCP Student in an Organized Health Care Education/Training Program; Visit Provider Preventive Medicine Occupational Medicine
DX: M54.50 Low back pain, unspecified (principal); M47.816 Spondylosis without myelopathy or radiculopathy, lumbar region
CPT/HCPCS: 64493; 64494; 72100; Q9967

== ENCOUNTER 2022-12-31 01:37 | Outpatient (RCR) | payer MEDICARE, SELFPAY ==
[2022-12-31 13:28] LABS: HCT 41.7 % (40.0-50.0); HGB 14.5 g/dL (13.5-17.5)
[2022-12-31 13:42] LABS: Ferritin 129 ng/mL (26-388)
== END 2023-01-20 23:59 | disposition home or self-care (01) ==
LOC: INF 01:37
PROVIDERS: PCP Student in an Organized Health Care Education/Training Program; Visit Provider Physician Assistant Medical
DX: E83.118 Other hemochromatosis (principal)
CPT/HCPCS: 36415; 99195; 82728; 85014; 85018

== ENCOUNTER 2023-01-02 05:08 | Outpatient (CLI) | payer MEDICARE, SELFPAY ==
[2023-01-02 16:37] LABS: Anion Gap 8.2 mmol/L (3-11); BUN 21 mg/dL (7-18); CO2 24.8 mmol/L (21.0-32.0); CREATININE 1.2 mg/dL (0.70-1.30); Calcium 9.3 mg/dL (8.5-10.1); Calculated LDL 96 mg/dL (<100); Chloride 103 mmol/L (98-107); Cholesterol 203 mg/dL (<200); Estimated GFR 63.46 (mL/min/1.73m2); Glucose 354 mg/dL (74-106); HDL Cholesterol 31 mg/dL (40-60); Potassium 4.1 mmol/L (3.5-5.1); Sodium 136 mmol/L (136-145); Triglyceride 384 mg/dL (<150)
[2023-01-02 17:00] LABS: Vitamin D 25 Total 52.6 ng/mL (30-100)
[2023-01-02 22:37] LABS: PSA, Screening 5.1 ng/mL (<=6.5)
== END 2023-01-02 05:09 | disposition home or self-care (01) ==
LOC: LBO 05:10
PROVIDERS: PCP Student in an Organized Health Care Education/Training Program; Visit Provider Student in an Organized Health Care Education/Training Program
DX: I10 Essential (primary) hypertension (principal); R73.09 Other abnormal glucose; E78.00 Pure hypercholesterolemia, unspecified; K74.60 Unspecified cirrhosis of liver; R39.11 Hesitancy of micturition; R39.198 Other difficulties with micturition; Z12.5 Encounter for screening for malignant neoplasm of prostate
CPT/HCPCS: 36415; 80048; 80061; 82306; 84153

== ENCOUNTER 2023-01-08 17:20 | Outpatient (CLI) | payer MEDICARE, SELFPAY ==
[2023-01-08 10:18] VITALS: BP 183/87; PULSE 98; RESP 20; TEMP 36.7; O2SAT 92
[2023-01-08 11:02] VITALS: BP 146/91; PULSE 106; RESP 19; O2SAT 94
[2023-01-08] MEDS: Omnipaque 240 MG/ML 50 ML BTL IJ (11:05)
[2023-01-08] MEDS: Bupivacaine 0.5% Pres-Free 10 ML VIAL IJ (11:05)
--- NOTE | 2023-01-08 18:15 | DI.RAD_ITS ---
Exam(s) XR PAIN CLINIC LUMBAR SP 2V EXAM: XR PAIN CLINIC LUMBAR SP 2V CLINICAL HISTORY: Dx: Lumbar Spondylosis TECHNIQUE: 2D and realtime digital imaging was performed. CONTRAST MATERIAL: Refer to procedure report. COMPARISON: No exams were available for comparison FINDINGS: Fluoroscopy was provided for Dr. Davila during the performance of a lumbar medial branch block. Anh yates refer to the procedure report for complete details. Ka,r=58.7 mGy IMPRESSION:
== END 2023-01-08 17:21 | disposition home or self-care (01) ==
LOC: PC 17:21
PROVIDERS: PCP Student in an Organized Health Care Education/Training Program; Visit Provider Preventive Medicine Occupational Medicine
DX: M54.50 Low back pain, unspecified (principal); M47.816 Spondylosis without myelopathy or radiculopathy, lumbar region
CPT/HCPCS: 64493; 64494; 72100; Q9967

== ENCOUNTER 2023-01-12 03:54 | Outpatient (CLI) | payer MEDICARE, SELFPAY ==
[2023-01-12 12:44] LABS: Hemoglobin A1C 9.4 % (<5.7)
== END 2023-01-12 03:55 | disposition home or self-care (01) ==
PROVIDERS: PCP Student in an Organized Health Care Education/Training Program; Visit Provider Student in an Organized Health Care Education/Training Program
DX: R73.09 Other abnormal glucose (principal)
CPT/HCPCS: 36415; 83036

== ENCOUNTER 2023-03-04 04:11 | Outpatient (RCR) | payer MEDICARE, SELFPAY ==
[2023-03-04 13:29] LABS: HGB 14.5 g/dL (13.5-17.5)
[2023-03-04 14:00] LABS: Ferritin 89 ng/mL (26-388)
== END 2023-03-22 23:59 | disposition home or self-care (01) ==
LOC: INF 04:11
PROVIDERS: PCP Student in an Organized Health Care Education/Training Program; Visit Provider Physician Assistant Medical
DX: E83.118 Other hemochromatosis (principal)
CPT/HCPCS: 36415; 82728; 85018

== ENCOUNTER → 2023-03-10 10:50 | Outpatient (BNVA) | payer MEDICARE, SELFPAY | PROVIDERS: PCP Student in an Organized Health Care Education/Training Program; Referring Provider Student in an Organized Health Care Education/Training Program; Visit Provider Nurse Practitioner Gerontology | DX: R39.11 Hesitancy of micturition (principal); R31.9 Hematuria, unspecified; N52.9 Male erectile dysfunction, unspecified; E11.65 Type 2 diabetes mellitus with hyperglycemia | CPT/HCPCS: 51798; 81003; 99205 ==

== ENCOUNTER 2023-03-10 11:42 | Outpatient (REF) | payer MEDICARE, SELFPAY ==
[2023-03-10 13:16] LABS: Bilirubin Negative (Negative); Blood Moderate (Negative); Clarity Clear (Clear); Glucose >=1000 mg/dL (Negative); Ketones Negative (Negative); Leukocyte Esterase Trace (Negative); Nitrite Negative (Negative); Urobilinogen 0.2 mg/dL (Up to 0.2); pH 5.5 (5-8)
[2023-03-10 13:24] LABS: Bacteria Rare HPF (Negative); Epithelial Cells Few HPF (Negative)
[2023-03-10 13:25] LABS: C & S Indicated? Yes; Casts Negative LPF (Negative); Crystals Negative HPF (Negative); Mucus Negative (Negative)
[2023-03-11 18:27] LABS: Lab Add On Test DONE
[2023-03-11 18:46] LABS: Microalb ug/mg Crea 29.1 ug/mg Cr
== END 2023-03-10 11:43 | disposition home or self-care (01) ==
LOC: LBN 11:42
PROVIDERS: PCP Student in an Organized Health Care Education/Training Program; Visit Provider Nurse Practitioner Gerontology
DX: R39.11 Hesitancy of micturition (principal)
CPT/HCPCS: 87077; 81003; 81015; 82043; 82570; 87086

== ENCOUNTER 2023-03-21 09:28 | Emergency (ER) | payer MEDICARE, SELFPAY ==
[2023-03-21 09:33] VITALS: BP 159/85; PULSE 77; RESP 18; TEMP 36.8; O2SAT 95
--- NOTE | 2023-03-21 10:17 | ED.GENADUL_ITS ---
Discharge Plan Disposition Patient Disposition: Home Condition: Stable Discharge Details Clinical Impression: Cellulitis Primary Care Provider: Kathe Norwood ED Provider: Ritchie Wood Home Meds and New Rx's Prescriptions: New cephalexin 500 mg capsule 500 mg PO QID 7 Days Qty: 28 0RF No Action tramadol 50 mg tablet See Rx Instructions PO DAILY PRN (Reason: pain) Qty: 56 2RF Rx Instructions: 1-2 tablets per day for mod-severe pain orally lisinopril 10 mg tablet 10 mg PO DAILY 30 Days Qty: 30 3RF Rx Instructions: Take one tablet daily by mouth Ozempic 0.25 mg or 0.5 mg (2 mg/3 mL) pen injector 0.25 mg subcut QWEEK 42 Days Qty: 3 2RF Hold Instructions: started insulin instead; never started per MD Rx Instructions: Inject 0.25 mg subcutaneously once weekly, then increase to 0.5 mg once weekly as tolerated (DME) OneTouch Ultra Blue Test Strip Strip See Rx Instructions .ROUTE .MEDSUPPLY Qty: 100 4RF Rx Instructions: Check blood sugar once a day (DME) lancets [OneTouch Delica Lancets] 33 gauge misc See Rx Instructions .ROUTE .MEDSUPPLY Qty: 100 4RF Rx Instructions: for BID testing; for A1C < 7; due to DM E11.9 (DME) Blood Glucose Test Strip See Rx Instructions .Route Qty: 100 3RF Rx Instructions: One touch ultra blue test strips to test blood sugars once daily. DX: E11.9 melatonin 10 mg tablet 10 mg PO HS PRN (Reason: insomnia) Hold Instructions: Pt Stopped/Never Started insulin glargine [Basaglar KwikPen U-100 Insulin] 100 unit/mL (3 mL) insulin pen 10 unit subcut QPM glipizide 2.5 mg tablet extended release 24hr 2.5 mg PO DAILY Discharge Instructions Instructions: Cellulitis (ED) Additional Instructions: Please call number on appointment form to arrange appointment time for official ultrasound of your right lower extremity on Thursday or Thursday. Please return to the emergency department for any worsening symptoms. Medical Decision Making 72-year-old male presents with painful red swollen right foot and ankle, no recent trauma no recent travel no recent hospitalization, no history of thromboembolic disease, patient is a diabetic, neurovascular exam of limb intact DP pulse intact sensate mobile extremity with full strength, ambulatory without assistance, no pain on palpation no fluctuance no crepitus, consider likely early mild cellulitis will also perform bedside mgloc-ai-chiu ultrasound right lower extremity to assess for DVT, will likely have patient return Thursday or Thursday for official right lower extremity Doppler ultrasound. Will likely start patient on empiric antibiotics give home care instructions and return precautions. Low suspicion for fracture or dislocation foreign body or vascular insult given history and physical. 10: 29 bedside ultrasound negative for DVT right lower extremity. Will start empirically on Keflex. Home care instructions return precautions given. Will provide return form for official ultrasound likely on Thursday given Thursday is a holiday. HPI General Date/Time Provider Initiated Documentation: 03/21/23 09:31 . HPI Narrative: 72-year-old male history of diabetes presents with a couple days of right foot and ankle swelling, mildly uncomfortable. No history of thromboembolic disease. Patient does have some superficial breaks in skin above right ankle. Denies fevers chills nausea vomiting or other systemic signs of illness. Denies history of recent admission travel or trauma. Related Data Home Medications Medication Instructions Recorded Confirmed blood sugar diagnostic #100 ea 05/16/22 02/09/23 OneTouch Delica Lancets 33 gauge #100 ea 05/22/22 02/09/23 (lancets) blood sugar diagnostic (Blood #100 ea 05/26/22 02/09/23 Glucose Test strips) tramadol 50 mg tablet See Rx Instructions PO DAILY PRN 01/01/23 03/21/23 pain #56 tab-caps lisinopril 10 mg tablet 10 mg PO DAILY 30 days #30 tabs 02/09/23 03/21/23 melatonin 10 mg tablet 10 mg PO HS PRN insomnia 02/09/23 03/21/23 semaglutide 0.25 mg or 0.5 mg (2 0.25 mg (0.368 mL) subcut QWEEK 42 02/09/23 03/21/23 mg/3 mL) subcutaneous pen injector days #3 mL (Ozempic) glipizide 2.5 mg tablet, extended 2.5 mg PO DAILY 03/12/23 03/21/23 release 24 hr insulin glargine 100 unit/mL (3 10 unit subcut QPM 03/12/23 03/21/23 mL) subcutaneous pen (Basaglar KwikPen U-100 Insulin) cephalexin 500 mg capsule 500 mg PO QID 7 days #28 caps 03/21/23 Previous Rx's Medication Instructions Recorded blood sugar diagnostic #100 ea 05/16/22 OneTouch Delica Lancets 33 gauge #100 ea 05/22/22 (lancets) blood sugar diagnostic (Blood #100 ea 05/26/22 Glucose Test strips) tramadol 50 mg tablet See Rx Instructions PO DAILY PRN 01/01/23 pain #56 tab-caps lisinopril 10 mg tablet 10 mg PO DAILY 30 days #30 tabs 02/09/23 semaglutide 0.25 mg or 0.5 mg (2 0.25 mg (0.368 mL) subcut QWEEK 42 02/09/23 mg/3 mL) subcutaneous pen injector days #3 mL (Ozempic) cephalexin 500 mg capsule 500 mg PO QID 7 days #28 caps 03/21/23 Allergies Allergy/AdvReac Type Severity Reaction Status Date / Time gabapentin Allergy Intermediate Skin Rash Verified 03/21/23 09:39 Smoked Meats Allergy Mild Wheezing, Uncoded 03/21/23 09:39 weak, dizzy blood transfer AdvReac Unknown Zoroastrianism Uncoded 03/21/23 09:39 Reasons (Jehovah Witness) General Stated Complaint: Cellulitis JENNY: 3 Review of Systems Narrative: Review of Systems Constitutional: negative Eyes: negative ENT: negative Cardiovascular: negative Respiratory: negative Gastrointestinal: negative : negative Musculoskeletal: Ankle swelling foot swelling Skin: Redness to foot and ankle Neurologic: negative Psych: negative PFSH All Active Problems (Updated 03/21/23 @ 10:29 by Ritchie Wood MD) Cellulitis (Acute) Hyperlipidemia (Acute) Class 3 severe obesity due to excess calories with serious comorbidity and body mass index (BMI) of 40.0 to 44.9 in adult (Acute) Lower urinary tract symptoms (LUTS) (Acute) Hematuria (Acute) Hemochromatosis (Acute) YEBOAH w/ Ferritin elev vs Hemochromatosis per previous PCP. .. Clinical Dx per CBC vs Genetic (Tests NEG) Dx.. on monthly phelbotomies at [facility] per [facility] goal ferritin 100ng/ml cc Impaired glucose metabolism (Acute) Abnormal urinary stream (Acute) Lumbosacral spondylosis without myelopathy (Acute) Osteophyte determined by x-ray (Acute) DISH (diffuse idiopathic skeletal hyperostosis) (Acute) per XR, 01/2022 Lower back pain (Acute) with poor PT & Pain/Ortho Injection response .. per PT (02/2022): No sig change in 4-6 wks ...undergone diagnostics for SI and hip as well as undergoing SI joint injection at the pain clinic and fluoroscopic guided intra-articular hip injection through Ortho of which did not seem to offer much symptom reduction. [ ] MRI [ ] Spine, NeuroSurg Chronic pain (Chronic 11/06/16) RIGHT LOWER EXTREMITY-11/05/16 Bilateral knee pain-drug contract with [email or web address]-01/2021-tramadol .. 11/05/16- CONTROLLED SUBSTANCE AGREEMENT No blood products (Acute 04/14/16) per religion, Jehovah Witness Essential hypertension (Acute) Diabetes mellitus (Acute) 2012-borderline, hemoglobin A1c 6.8%. Hemoglobin A1c in upper range of normal/hyperglycemic range since , diet controlled Osteoarthritis, knee (Acute) s/p steroid injection bilateral knee 2020, followed by orthopedics On tramadol-drug contract with [email or web address] YEBOAH (nonalcoholic steatohepatitis) (Acute) Mildly elevated transaminases, ultrasound 2016 at [facility] consistent with fatty liver Unspecified cirrhosis of liver (Acute) on u/s 12/30/21. repeat u/s and labs in 6 mos at [facility] Primary osteoarthritis of right hip (Acute) Nasal obstruction (Acute) Unable to breathe thru nose x years; difficulty speaking 2' mouth breathing Daytime somnolence (Acute) Falling asleep in OV.. Mouth breathing (Acute) improved s/p nasal polyp removal (ENT, [facility]) SI (sacroiliac) joint dysfunction (Acute) Chronic nasal congestion (Acute) Nasal polyp (Acute) Pruritic dermatitis (Acute) Medical History Restless leg syndrome followed by sleep clinic Erectile dysfunction Sleep apnea syndrome CPAP History of nasal polyp Chronic pain syndrome 01/2021, tramadol, drug contract Advanced knee pain-advanced osteoarthritis Surgical History S/P endoscopy (~11/07/22) 11/07/22 [facility] [place] GI endoscopy. Findings: esophagus normal. no varices. Mild portal hypertensive gastropathy was found in the entire examined stomach. No varices. The examined duodenum was normal. No specimens collected. Chito Yoder MD Status post nasal endoscopy with nasal polypectomy 02/17/2022-bilateral Hx of bilateral cataract extraction Family History Mother , AGE 92 Myocardial infarction Father , AGE 73 Heart disease Myocardial infarction Sister Epilepsy Sister No problems noted. Brother Alcohol abuse Cancer uncertain of cancer type. Brother , 79 Diabetes Cancer Brother No problems noted. Brother Diabetes Brother No problems noted. Son No problems noted. Daughter Depression Daughter Diabetes Maternal Grandfather , age 34 - tractor accident No problems noted. Paternal Grandfather No problems noted. Maternal Grandmother , age 93 No problems noted. Paternal Grandmother , age 79 No problems noted. Social History Smoking/Tobacco Use Status: Never Second Hand Exposure: Yes Smoking risk assessment performed?: Yes Alcohol Intake: never Drug use: Never Substance use type: does not use Counseling given: No Adopted: No Caregiver/Support person: No Foster care: No Household members: spouse and children Housing: house Number of Children: 3 number of grandchildren: 3 Communication Needs: Hard of Hearing Education Level: high school Do you need help understanding health information?: Rarely current occupation: retired [employer] Pets and animals: Yes Pets and animals: cat(s) Do you think of yourself as: straight/heterosexual Current gender identity: male What is your relationship status?: How often do you talk on the phone with friends or family?: once per week How often do you get together with friends or relatives?: twice per week How often do you attend evangelical or religion services?: 4 or more times per year Do you belong to any clubs or organized social groups?: no Panel score (0-1 are the most socially isolated patients): 3 What type of physical activity do you participate in: walking Duration: 15-30 minutes/day Frequency: daily Jasmin/Congregation: Jehovah's witness Special jasmin needs: Yes (no blood transfusion) Agree to transfusion: No Seatbelt use: always Helmet use: Yes Helmet use: sometimes Drive intox or ride w/intox hook up driver: No Do you feel safe at home: Yes Do you feel safe in your relationship?: Yes Additional Social history: unable to assess privately Exam Narrative Exam Narrative: Physical Examination General: alert, awake, cooperative, resting comfortably, no acute distress HEENT: normocephalic, atraumatic; PERRL, EOM intact, conjunctiva normal; no nasal discharge; moist mucous membranes, oral and pharyngeal mucosa normal, tolerating secretions Neck: supple, trachea midline; full ROM Chest: normal to inspection Respiratory: normal respiratory effort, speaking in full sentences Cardiac: regular rate, regular rhythm Skin: Mild erythema, warmth and induration to dorsum of right foot and ankle; superficial abrasions to right gauthier and right ankle hemostatic no foreign body no fluctuance or purulence Neuro: AAOx3, normal speech, moving all extremities Extremities: Edema to right foot and ankle, greater than left Psych: Appropriate mood and affect Course Vital Signs Vital signs: Vital Signs Temperature 36.8 C 03/21/23 09:33 Pulse 77 03/21/23 09:33 Respiratory Rate 18 03/21/23 09:33 Blood Pressure 159/85 H 03/21/23 09:33 Pulse Oximetry 95 03/21/23 09:33 Temperature 36.8 C 03/21/23 09:33 Temperature Source Temporal Artery Scan 03/21/23 09:33 Pulse 77 03/21/23 09:33 Respiratory Rate 18 03/21/23 09:33 Respiratory Effort Normal, Non-Labored 03/21/23 09:37 Blood Pressure 159/85 H 03/21/23 09:33 Pulse Oximetry 95 03/21/23 09:33 Pain Level 4 03/21/23 09:37
[2023-03-21] MEDS: Cephalexin 500 MG CAP PO (10:40)
== END 2023-03-21 10:49 | disposition home or self-care (01) ==
PROVIDERS: Emergency Provider Emergency Medicine; PCP Student in an Organized Health Care Education/Training Program
DX: L03.115 Cellulitis of right lower limb (principal); E11.9 Type 2 diabetes mellitus without complications; Z79.4 Long term (current) use of insulin
CPT/HCPCS: 99283

== ENCOUNTER → 2023-03-24 10:05 | Outpatient (CLI) | payer MEDICARE, SELFPAY ==
--- NOTE | 2023-03-24 | DI.US_ITS ---
Exam(s) US LOWER EXTREMITY VENOUS RT EXAM: US LOWER EXTREMITY VENOUS RT CLINICAL HISTORY: RLE REDNESS/SWELLING, R22.41, ? DVT TECHNIQUE: Right lower extremity venous ultrasound performed using grayscale, color-flow, and spectr al Doppler analysis. COMPARISON: No exams were available for comparison FINDINGS: The right common femoral, femoral and popliteal veins demonstrate normal compressibility, augmentatio n, and color Doppler. The posterior tibial and peroneal veins are patent. The saphenofemoral junctio n is unremarkable. There is no evidence of a Martínez cyst. The soft tissues are unremarkable. IMPRESSION: No evidence of a right lower extremity DVT. DATA REPOSITORY:
== END ==
PROVIDERS: PCP Student in an Organized Health Care Education/Training Program; Visit Provider Emergency Medicine
DX: R22.41 Localized swelling, mass and lump, right lower limb (principal)
CPT/HCPCS: 93971

== ENCOUNTER 2023-04-15 13:23 | Outpatient (CLI) | payer MEDICARE, SELFPAY ==
[2023-04-15 13:44] VITALS: BP 150/77; PULSE 85; RESP 20; TEMP 36.7; O2SAT 95
[2023-04-15] MEDS: fentaNYL 100 MCG/2 ML VIAL IVP (14:15)
[2023-04-15] MEDS: Lactated Ringers 500 ML 80 ML IV (14:16)
[2023-04-15] MEDS: Midazolam 2 MG/2 ML VIAL IVP (14:16)
[2023-04-15 14:53] VITALS: BP 151/69; PULSE 68; RESP 16; O2SAT 96
--- NOTE | 2023-04-15 14:56 | PDOC.PAIN_ITS ---
Date of service: 04/15/23 Time of Service: 14:56 Pain Managment Procedure Note Procedure Note Procedure Note: PROCEDURE NOTE BILATERAL LUMBAR RADIOFREQUENCY ABLATION Date of Service: April 15, 2023 Patient:? Prateek Tapia? Provider:? Abdullahi Davila DO, MPH Prateek Tapia [facility] Lumbar Radiofrequency Ablation with the AvEyegrooves Machine.? Pre Operative Diagnosis: Lumbosacral Spondylosis without Myelopathy Post Operative Diagnosis: Same Pre procedure pain; VAS= 8/10 Comments: He has diabetes and we cut the steroid in half. PROCEDURE: Radiofrequency Ablation of medial branches - bilateral L3, L4, L5 and lateral branches of bilateral S1. Prateek?was interviewed and the medical record was reviewed.? There were no medical, pharmacologic, radiographic or other structural contraindications to attempting fluoroscopically guided BILATERAL Lumbar Radiofrequency Ablati on.?Risks and expected side effects as well as potential benefit of the procedure were reviewed with Prateek, and the patient's voiced concerns were addressed.? The printed consent form was signed.? Standard time-out procedure was performed. Prateek was brought into the fluoroscopy suite and positioned into the prone position on the fluoroscopy table and allowed to adjust to a position of comfort . A grounding pad was placed on the left abdomen. The sterile field was prepared using chlorhexidine preparation of the skin and sterile draping. Local anesthesia superficial and deep was provided by local infiltration of 2% lidocaine. A 17g 100 mm radiofrequency introducer needle was placed to the planned anatomic targets guided with intermittent fluoroscopy with a perpendicular approach to te rminally place at the junction of the superior articular process and the transverse process of the bilateral L4, L5, the base of the sacral ala on the bilateral for the L5 medial branch nerve and the area between base of the sacral ala to the S1 foramen bilaterally. The stylets were removed and radiofrequency probes with a 4mm active tip were then inserted. Needle tip position of the probes was verified in the AP, oblique, and lateral views. At each site, the medial branch nerve was stimulated at 2 Hz to a maximum 1-2 volts determined to finalize safe needle and electrode placement. The patient was awake and responsive during this portion of the procedure. Each target was anesthetized with 1-2 mL of 2 % Lidocaine for anesthesia for lesioning and then each target was lesioned at 80 degrees Celsius for 2 minutes and 30 seconds. Tissue impedances were noted to be between 250 and 500 Ohms. There was no unusual discomfort expressed by Prateek. 1/8cc of Depomedrol (40 mg/cc) followed by 1 cc of 0.5% Bupivacaine was injected at each sensory nerve. The needles were withdrawn without difficulty and bandages placed over the needle placement sites, the patient was observed and was without hemodynamic, neurologic, or allergic reactions. Fluoroscopic images were digitally archived. POST PROCEDURE EVALUATION: IMPRESSION: 1. Summary of procedure. Medication given is documented in the MAR. 2. Follow up plan: Prateek to contact [facility] as needed.?This procedure may be repeated if the patient achieves at least 50% improvement in pain/function for at least 6 months. 3. Estimated Blood Loss: <5 mls 4. Fluoroscopy time: Documented in the EMR. Follow up plans and appointments were discussed with the Prateek. Post procedure instruction was given as documented in nursing documentation and having met discharge criteria, Prateek was [facility] from the [facility]. COMMENTS: No apparent complications. Post-procedure pain: VAS= 2/10. I personally completed the entire procedure. ABDULLAHI DAVILA DO, MPH ABPM&R - Subspecialty board certification in Pain Medicine [facility]
--- NOTE | 2023-04-15 14:57 | DI.RAD_ITS ---
Exam(s) XR PAIN CLINIC LUMBAR SP 2V EXAM: XR PAIN CLINIC LUMBAR SP 2V CLINICAL HISTORY: Dx: Lumbar Spondylosis. TECHNIQUE: Fluoroscopy was provided for the referring physician for guidance with performing pain cl inic injection procedure. COMPARISON: No exams were available for comparison FINDINGS: Please see procedure note for details. Fluoro time: 58.2 seconds RADIATION DOSE DELIVERED: Luisanar=36.45 mGy
[2023-04-15] MEDS: Nerve Block Tray 1 EACH MC (15:05)
[2023-04-15] MEDS: methylPREDNISolone ACETATE 40 MG/ML VIAL IJ (15:06)
[2023-04-15] MEDS: Bupivacaine 0.5% Pres-Free 10 ML VIAL IJ (15:06)
[2023-04-15] MEDS: Lidocaine 2% Pres-Free 5 ML VIAL IJ (15:06)
== END 2023-04-15 13:24 | disposition home or self-care (01) ==
LOC: PC 13:23
PROVIDERS: PCP Student in an Organized Health Care Education/Training Program; Visit Provider Preventive Medicine Occupational Medicine
DX: M54.50 Low back pain, unspecified (principal); M47.817 Spondylosis without myelopathy or radiculopathy, lumbosacral region
CPT/HCPCS: 00123; 64635; 64636; 72100; J0665; J1030; J2250; J3010

== ENCOUNTER → 2023-08-13 13:12 | Outpatient (BNVA) | payer MEDICARE, SELFPAY | PROVIDERS: PCP Student in an Organized Health Care Education/Training Program; Referring Provider Student in an Organized Health Care Education/Training Program; Visit Provider Student in an Organized Health Care Education/Training Program | DX: M17.11 Unilateral primary osteoarthritis, right knee (principal); M17.12 Unilateral primary osteoarthritis, left knee | CPT/HCPCS: 20610; J1010 ==

== ENCOUNTER 2023-09-01 05:21 | Outpatient (CLI) | payer MEDICARE, SELFPAY ==
[2023-09-01 12:58] LABS: Abs Immature Grans 0.03 10^3/uL (0.0-0.06); Absolute Basophil Count 0.04 10^3/uL (0.0-0.2); Absolute Eosinophil Count 0.19 10^3/uL (0.0-0.7); Absolute Lymphocyte Count 1.13 10^3/uL (1.2-3.4); Absolute Monocyte Count 0.35 10^3/uL (0.1-0.8); Absolute Neutrophil Count 3.02 10^3/uL (1.2-6.7); Basophils % 0.8 %; HCT 40.3 % (40.0-50.0); HGB 13.9 g/dL (13.5-17.5); Immature Grans % 0.6 %; Lymphocytes % 23.7 %; MCHC 34.5 % (32.0-36.0); MCV 90 fL (80-95); MPV 11.2 fL (8.0-11.0); Monocytes % 7.4 %; Neutrophils % 63.5 %; Platelet Count 113 10^3/uL (130-400); RBC 4.48 10^6/uL (4.36-5.78); RDW 13.4 % (11.8-14.1); RDW-SD 43.8 fL; WBC 4.76 10^3/uL (4.4-10.8)
[2023-09-01 13:28] LABS: Iron 100 ug/dL (65-175); Total Iron Binding Capacity 337 ug/dL (250-450); Transferrin Sat 30 % (20-55)
[2023-09-01 13:39] LABS: ALT 88 U/L (16-63); AST 49 U/L (15-37); Albumin 3.1 g/dL (3.4-5.0); Alkaline Phosphatase 150 U/L (46-116); Anion Gap 7.7 mmol/L (3-11); BUN 25 mg/dL (7-18); Bilirubin, Total 0.8 mg/dL (0.2-1.0); CO2 26.3 mmol/L (21.0-32.0); CREATININE 1.3 mg/dL (0.70-1.30); Calcium 9.3 mg/dL (8.5-10.1); Calculated LDL 117 mg/dL (<100); Chloride 105 mmol/L (98-107); Cholesterol 194 mg/dL (<200); Estimated GFR 57.65 (mL/min/1.73m2); Ferritin 143 ng/mL (26-388); Folate 5.7 ng/mL (8.6-20.0); Glucose 308 mg/dL (74-106); HDL Cholesterol 39 mg/dL (40-60); Potassium 4.1 mmol/L (3.5-5.1); Sodium 139 mmol/L (136-145); Total Protein 7.1 g/dL (6.4-8.2); Triglyceride 191 mg/dL (<150); Vitamin B12 443 pg/mL (193-986)
== END 2023-09-01 05:22 | disposition home or self-care (01) ==
LOC: LOS 05:21
PROVIDERS: PCP Student in an Organized Health Care Education/Training Program; Visit Provider Student in an Organized Health Care Education/Training Program
DX: I10 Essential (primary) hypertension (principal); E11.9 Type 2 diabetes mellitus without complications; E83.118 Other hemochromatosis; E83.19 Other disorders of iron metabolism; M79.2 Neuralgia and neuritis, unspecified; G25.81 Restless legs syndrome; Z79.899 Other long term (current) drug therapy
CPT/HCPCS: 36415; 80053; 80061; 82607; 82728; 82746; 83540; 83550; 85025

== ENCOUNTER → 2023-11-05 13:25 | Outpatient (BNVA) | payer MEDICARE, SELFPAY | PROVIDERS: PCP Student in an Organized Health Care Education/Training Program; Referring Provider Student in an Organized Health Care Education/Training Program; Visit Provider Physical Therapy Assistant | DX: Z12.11 Encounter for screening for malignant neoplasm of colon (principal); R19.5 Other fecal abnormalities ==

== ENCOUNTER 2023-11-13 07:32 | Day surgery (SDC) | payer MEDICARE, SELFPAY ==
--- NOTE | 2023-11-12 18:24 | W.ANESPRE ---
General Info Date of Service Date Performed: 11/13/23 Height: 5 ft 9.5 in Weight: 130.238 kg Body Mass Index (BMI): 41.8 Surgical Procedure: Operation Date: 11/13/23 09:05 Proposed Procedure Side Surgeon kalie Aguirre MD Meds Allergies and Home Medications Allergies Allergy/AdvReac Type Severity Reaction Status Date / Time gabapentin Allergy Intermediate Skin Rash Verified 11/12/23 13:06 Smoked Meats Allergy Mild Wheezing, Uncoded 11/12/23 13:06 weak, dizzy blood transfer AdvReac Unknown Holiness Uncoded 11/12/23 13:06 Reasons (Jehovah Witness) Home Medication ?Medication ?Instructions ?Recorded blood sugar diagnostic #100 ea 05/16/22 OneTouch Delica Lancets 33 gauge #100 ea 05/22/22 (lancets) melatonin 10 mg tablet 10 mg PO HS PRN insomnia 02/09/23 glipizide 2.5 mg tablet, extended 2.5 mg PO DAILY 03/12/23 release 24 hr insulin glargine 100 unit/mL (3 10 unit subcut QPM 03/12/23 mL) subcutaneous pen (Basaglar KwikPen U-100 Insulin) magnesium gluconate 27 mg 27 mg PO QHS #90 tabs 04/02/23 magnesium (500 mg) tablet blood sugar diagnostic (Blood #200 ea 05/20/23 Glucose Test strips) lisinopril 10 mg tablet 10 mg PO DAILY #90 tabs 11/01/23 tramadol 50 mg tablet See Rx Instructions PO QHS PRN 11/05/23 moderate-severe back, leg pain #60 tab-caps Current Visit Medications: Current Medications Generic Name Dose Route Start Last Admin Trade Name Freq PRN Reason Stop Dose Admin Ringer's Solution 1,000 mls @ 80 mls/hr 11/13/23 06:00 IV 11/13/23 23:59 INFUSION DEE IV Miscellaneous Supplies 1 each 11/13/23 06:00 Iv Access IV 11/13/23 23:59 DIRECTED DEE Sodium Chloride 0 ml 11/13/23 06:00 Normal Saline Flush 10 Ml Syr IV 11/13/23 23:59 PRN PRN Sodium Chloride 0 ml 11/13/23 06:00 Normal Saline 10 Ml Vial IJ 11/13/23 23:59 DIRECTED PRN Sterile Water 0 ml 11/13/23 06:00 Water,Injection,Sterile 10 Ml Vial IJ 11/13/23 23:59 DIRECTED PRN PFSH Active Problems Active Problems: Problem Status Onset Code Positive colorectal cancer screening using DNA-based stool test Acute R19.5 Elevated ferritin level Acute R79.89 Osteoarthritis of knees, bilateral Acute M17.0 Muscle pain, myofascial Acute M79.18 Insomnia Acute G47.00 Sleep apnea syndrome Acute G47.30 Cirrhosis Chronic K74.60 Essential hypertension Acute I10 Hyperlipidemia Acute E78.5 Hemochromatosis Acute E83.119 Diabetes mellitus Acute E11.9 Elevated hemoglobin A1c Acute R73.09 YEBOAH (nonalcoholic steatohepatitis) Acute K75.81 Lumbosacral spondylosis without myelopathy Acute M47.817 Osteophyte determined by x-ray Acute M25.70 DISH (diffuse idiopathic skeletal hyperostosis) Acute M48.10 Lower back pain Acute M54.50 Chronic pain Chronic 11/06/16 G89.29 Osteoarthritis, knee Acute M17.10 Primary osteoarthritis of right hip Acute M16.11 SI (sacroiliac) joint dysfunction Acute M53.3 No blood products Acute 04/14/16 Z78.9 Medical History Medical History Lower urinary tract symptoms (LUTS) Hematuria Impaired glucose metabolism Advancing to diabetes Abnormal urinary stream Class 3 severe obesity due to excess calories with serious comorbidity and body mass index (BMI) of 40.0 to 44.9 in adult Mouth breathing improved s/p nasal polyp removal (ENT, [place]) Daytime somnolence Falling asleep in OV.. Nasal obstruction Unable to breathe thru nose x years; difficulty speaking 2' mouth breathing Restless leg syndrome followed by sleep clinic Erectile dysfunction History of nasal polyp Chronic pain syndrome 01/2021, tramadol, drug contract Advanced knee pain-advanced osteoarthritis Surgical History Surgical History S/P endoscopy (~11/07/22) 11/07/22 [facility] upper GI endoscopy. Findings: esophagus normal. no varices. Mild portal hypertensive gastropathy was found in the entire examined stomach. No varices. The examined duodenum was normal. No specimens collected. Chito Yoder MD Status post nasal endoscopy with nasal polypectomy 02/17/2022-bilateral Hx of bilateral cataract extraction Tobacco Smoking/Tobacco Use Status: Never Passive smoking exposure: Yes (as a child) Second hand exposure: Yes Alcohol Alcohol Intake: never Substance Use Substance use: Never Substance use type: does not use Vital Signs and Lab Results Vital Signs Most Recent Vital Signs in EMR: Temp Pulse Resp BP Pulse Ox 37.0 C 87 16 157/74 H 97 11/13/23 08:12 11/13/23 08:12 11/13/23 08:12 11/13/23 08:12 11/13/23 08:12 Lab Results Blood Type / Crossmatch: No Data to Display Complete Blood Count: No Data to Display Complete Metabolic Panel: No Data to Display Liver Function Panel: No Data to Display Coagulation Panel: No Data to Display Cardiac Panel: No Data to Display Arterial Blood Gas: No Data to Display Venous Blood Gas: No Data to Display Pancreas Panel: No Data to Display Thyroid Panel: No Data to Display Infectious Disease: No Data to Display Blood Cultures: No Data to Display Toxicology Panel: No Data to Display Imaging and Studies Imaging and Studies Study information below may be from another EMR and interpreted by another provider. Please see original notes in EMR for more complete details. EKG Summary: 12/10: sinus. Stress Test Summary: 12/10: 7 METS, no symptoms of ischemia. EF 52% with stress. no WMA. normal. Anesthesia Assessment and Plan Anesthesia History Personal History: No History of Anesthesia Complications Family History: No Family History of Anesthesia Complications Exercise Tolerance Exercise Tolerance: Metabolic Equivalents>4 Cardiac & Pulmonary Exam Cardiac Exam: Normal S1/S2 Heart Sounds Pulmonary Exam: Clear Bilateral Breath Sounds Implantable Cardiac Device Does patient have a Pacemaker or an ICD?: No Airway Exam Known Difficult Airway: No Mallampati Class: 3 Mouth Opening: Normal (> 3cm) Thyromental Distance: Greater than 3 cm Neck Range of Motion: Full ROM Neck Circumference: Thick Teeth Condition: Normal Dentition (None loose, many missing. ) and Removable Dentures/Plates Upper (Upper partial) ASA Classification ASA Score: ASA 3 Emergency Case?: No NPO Status NPO Status: NPO Clears >2 hours, Solids >8 hours Anesthesia Plan Resuscitation Status: Full Code Anesthesia Technique: General Anesthesia Airway Planned: Natural Airway Monitors Used: Standard Monitors Preoperative Comments:: 72 yo male Jehovah witness for colo due to positive cologuard. Sig PMHX: HTN (lisinopril), LISSETT (uses CPAP), cirrhosis/YEBOAH (followed at [facility], states he is doing well), DM (glipizide, glargine. BS today 195. last A1c 6.9%), RLS. never smoker. Previous Anes: - nasal polypectomy, prop, glide 3 grade 1.
--- NOTE | 2023-11-12 20:43 | W.PM.DSUDISC ---
Date of service: 11/13/23 Time of Service: 10:22 Discharge Plan Disposition Patient Disposition: Home Condition: Good Discharge Details Reason For Visit: screening colonoscopy Attending Provider: Parker Aguirre Primary Care Provider: Kathe Norwood Home Meds and New Rx's Prescriptions: Continued magnesium gluconate 27 mg magnesium (500 mg) tablet 27 mg PO QHS Qty: 90 3RF Rx Instructions: Start Magnesium for leg muscle cramping/restlessness tramadol 50 mg tablet See Rx Instructions PO QHS PRN (Reason: moderate-severe back, leg pain) Qty: 60 2RF Rx Instructions: Continue with 1-2 tabs qHS orally every day at bedtime PRN; (DME) blood sugar diagnostic Strip See Rx Instructions .ROUTE .MEDSUPPLY Qty: 100 4RF Rx Instructions: Check blood sugar once a day (DME) lancets [OneTouch Delica Lancets] 33 gauge misc See Rx Instructions .ROUTE .MEDSUPPLY Qty: 100 4RF Rx Instructions: for BID testing; for A1C < 7; due to DM E11.9 melatonin 10 mg tablet 10 mg PO HS PRN (Reason: insomnia) insulin glargine [Basaglar KwikPen U-100 Insulin] 100 unit/mL (3 mL) insulin pen 10 unit subcut QPM glipizide 2.5 mg tablet extended release 24hr 2.5 mg PO DAILY (DME) Blood Glucose Test Strip See Rx Instructions .Route Qty: 200 3RF Rx Instructions: One touch ultra blue test strips to test blood sugars BID. DX: E11.9 lisinopril 10 mg tablet 10 mg PO DAILY Qty: 90 3RF Rx Instructions: Take one tablet daily by mouth Discontinued bisacodyl 5 mg tablet,delayed release (DR/EC) 5 mg PO ONCE Qty: 4 0RF Rx Instructions: Per Colonoscopy bowel prep instructions polyethylene glycol 3350 17 gram/dose powder 238 g PO ONCE Qty: 238 0RF Rx Instructions: For Colonoscopy bowel prep, as directed by office Discharge Instructions Instructions: Colon polyps Additional Instructions: Prateek, we were able to complete your colonoscopy today without any difficulty. I hope you are comfortable. I did find and remove 3 polyps today. These are almost certainly the source of your positive Cologuard test. 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 This is basically like a varicose vein inside of your large intestine. I only mention it, because this also could trigger the Cologuard test. It will take about a week or 2 to get the results of the polyp analysis, and once I have those, my office will be in touch with recommendations for any future colonoscopies. If you need anything, or have any questions at all in the meantime, please do not hesitate to call me. 1. If tolerated, consume a soft, low fiber diet for 1-2 days. 2[address] Do not drive, drink alcohol, operate machinery, make critical decisions, or do activities that require coordination or balance for 24 hours. 3. Because air was put into your colon during the procedure, expelling air from your rectum (passing gas or farting) is normal. 4. You may not have a bowel movement for 1-3 days because of the colonoscopy prep. This is normal. 5. Go directly to the emergency room if you notice any of the following: Develop chills (warm to touch), or if you have a thermometer and your temperature is above 101 Difficulty breathing or difficultly swallowing Persistent vomiting Severe abdominal pain, other than gas cramps Severe chest pain Black, tarry stools Any bleeding ? exceeding one tablespoon 6. Call your physician if the site where your intravenous was started becomes red, swollen, painful, and warm to touch. 7. Your physician has reviewed your pre-procedure medications. Please continue to take those medications as previously ordered. You will be given specific information/education regarding any changes to your medications before leaving. Activity:: Activity as Tolerated Diet:: As Tolerated Discharge Orders Discharge Orders: Discharge Order (Routine); Ordered 11/12/23 Ordered By: Parker Aguirre DS: Diagnosis Discharge Diagnosis (1) Encounter for screening colonoscopy: Status: Acute Asessment and Plan: Follow-up on polypectomy results
--- NOTE | 2023-11-12 20:45 | COLE_ITS ---
Date of service: 11/13/23 Time of Service: Colonoscopy Report Date of procedure: 11/13/23 Pre-op diagnosis general: screening colonoscopy Post-op diagnosis procedure note: other (Colon polyps, AV malformation) Procedure: Colonoscopy Surgeon: Parker Aguirre Anesthesia Type: General:No Airway Estimated blood loss (mL): 5 Pathology: other (0.5 cm cecal polyp, 0.25 cm polyp at 90 cm, 0.5 cm polyp at 20 cm) Complications: None Disposition: same day Indications: Prateek is 72 years old. He had a positive cologuard test. 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 Perineum and skin were normal, as was the anal verge.? There was no evidence of external hemorrhoids.? Next, I performed a digital rectal exam.? I did not appreciate any abnormal findings.? Next, I advanced a colonoscope into the rectal vault.? I performed retroflexion.? This was normal.? Using insufflation, I then advanced the colonoscope beyond the rectal folds and into the sigmoid colon before advancing towards the cecum.? There was a small, nonbleeding arteriovenous malformation in the transverse colon. Surrounding tissue was normal and healthy appearing..? The scope was noted to be in the cecum by identification of the ileocecal valve and appendiceal orifice.? Within the cecum was a 0.5 cm slightly pedunculated polyp. This was removed with cold forceps polypectomy. There was minimal bleeding. I then began withdrawing the colonoscope using repeated irrigation as necessary for full evaluation of the colonic mucosa. Around 90 cm from the anal verge was another polyp. This was much smaller at 0.25 cm. This was a little more sessile. This was removed with cold forceps without issue. ?Once the scope was withdrawn to the level of the rectum, great care was taken to examine portions of the rectal folds.? At the upper portion of the rectal v tonya, or perhaps just within the sigmoid colon around 20 cm from the anus was another polyp. This was also about 0.5 cm, and a bit pedunculated. This was removed with cold forceps. Finally, the scope was withdrawn and the patient was brought to the same-day surgery recovery unit as the anesthetic wore off. ?The findings and instructions were shared with the patient prior to discharge. [place] Bowel Prep [place] Bowel Prep Right Colon: 2 Left Colon: 3 Transverse Colon: 3 Total Score: 8
[2023-11-13 08:12] VITALS: BP 157/74; PULSE 87; RESP 16; TEMP 37; O2SAT 97
[2023-11-13] MEDS: Lactated Ringers 1,000 ML 80 ML IV (08:15)
[2023-11-13 08:28] VITALS: BMI 41.8
--- NOTE | 2023-11-13 09:58 | BOWEL_PTH ---
PATIENT: Prateek Tapia LOC: [facility] U#:[id number] AGE/SX: 72/M ROOM: RE11/13/[address]: Parker Aguirre MD : [id number] BED: DIS: 11/13/2023 SPEC #: [id number] RECD: 11/13/23 12:41 STATUS: LINDA REQ #: [id number] LATOYA: 11/13/23 09:[address]: Parker Aguirre DEPT: Surgical Specimen RECD BY: Kiya May ENTERED: 11/13/23 12:43 SP TYPE: Bowel OTHR DR: Kathe Norwood DO Tissues: 1 - BIOPSY BOWEL 2 - BIOPSY BOWEL 3 - BIOPSY BOWEL Procedures: GROSS AND MICRO LEVEL 4 Comments: [id number]
[2023-11-13 10:15] VITALS: BP 134/72; PULSE 94; RESP 16; TEMP 36.1; O2SAT 96
--- NOTE | 2023-11-13 10:22 | W.ANESPOSTOP ---
Postoperative Evaluation Date, Time and Location Date Performed: 11/13/23 Time Performed: 10:22 Patient Location: Day Surgery Unit Vital Signs Most Recent Imported Vital Signs: Most Recent Vital Signs Temp Pulse Resp BP Pulse Ox 36.1 C L 94 H 16 134/72 96 11/13/23 10:15 11/13/23 10:15 11/13/23 10:15 11/13/23 10:15 11/13/23 10:15 Pain Score Most Recent Pain Score: Most Recent Pain Score Pain Level 0 11/13/23 10:15 Assessment Mental Status: Awake (Alert & Oriented to Patient Baseline) Airway and Respiratory Function: Patent airway with normal (patient baseline) respiratory exam Cardiovascular Function: Hemodynamically Stable Hydration Status: Adequately Hydrated Nausea & Vomiting: No Nausea or Vomiting Pain: Pt. Denies Any Pain Peripheral Nerve Block: Patient did not receive a nerve block
[2023-11-13 10:41] VITALS: BP 140/64; PULSE 85; RESP 16; TEMP 36.1; O2SAT 97
== END 2023-11-13 11:06 | disposition home or self-care (01) ==
LOC: SUR 07:32
PROVIDERS: PCP Student in an Organized Health Care Education/Training Program; Visit Provider Surgery
PROC: 0DJD8ZZ Inspection of Lower Intestinal Tract, Via Natural or Artificial Opening Endoscopic (ICD-10-PCS; CPT 45378; principal; 2023-11-13 09:00)
DX: Z12.11 Encounter for screening for malignant neoplasm of colon (principal); D12.0 Benign neoplasm of cecum; Q27.33 Arteriovenous malformation of digestive system vessel; K63.89 Other specified diseases of intestine
CPT/HCPCS: 45380; 88305; J2704

== ENCOUNTER → 2023-11-16 13:46 | Outpatient (BNVA) | payer MEDICARE, SELFPAY | PROVIDERS: PCP Student in an Organized Health Care Education/Training Program; Referring Provider Student in an Organized Health Care Education/Training Program; Visit Provider Physician Assistant | DX: M17.0 Bilateral primary osteoarthritis of knee (principal) | CPT/HCPCS: 20610; J1010 ==

== ENCOUNTER 2024-04-18 03:21 | Outpatient (CLI) | payer MEDICARE, SELFPAY ==
[2024-04-18 12:17] LABS: HCT 41.5 % (40.0-50.0); HGB 14.1 g/dL (13.5-17.5); MCH 31.1 pg (27.0-33.0); MCV 91 fL (80-95); MPV 11.3 fL (8.0-11.0); Platelet Count 124 10^3/uL (130-400); RBC 4.54 10^6/uL (4.36-5.78); RDW 13.1 % (11.8-14.1); RDW-SD 43.9 fL; WBC 5.34 10^3/uL (4.4-10.8)
[2024-04-18 12:34] LABS: Iron 95 ug/dL (65-175); Total Iron Binding Capacity 349 ug/dL (250-450); Transferrin Sat 27 % (20-55)
[2024-04-18 12:41] LABS: Anion Gap 10.1 mmol/L (3-11); BUN 30 mg/dL (7-18); CO2 24.9 mmol/L (21.0-32.0); CREATININE 1.5 mg/dL (0.70-1.30); Calcium 9.7 mg/dL (8.5-10.1); Chloride 107 mmol/L (98-107); Estimated GFR 48.25 (mL/min/1.73m2); Ferritin 148 ng/mL (26-388); Glucose 255 mg/dL (74-106); Potassium 4.1 mmol/L (3.5-5.1); Sodium 142 mmol/L (136-145)
== END 2024-04-18 03:22 | disposition home or self-care (01) ==
LOC: LOS 03:21
PROVIDERS: PCP Family Medicine; Visit Provider Student in an Organized Health Care Education/Training Program
DX: I10 Essential (primary) hypertension (principal); E11.9 Type 2 diabetes mellitus without complications; K74.60 Unspecified cirrhosis of liver; E83.118 Other hemochromatosis
CPT/HCPCS: 36415; 80048; 85027; 82728; 83540; 83550

== ENCOUNTER 2024-05-11 02:38 | Outpatient (CLI) | payer MEDICARE, SELFPAY ==
[2024-05-11 13:27] LABS: Abs Immature Grans 0.06 10^3/uL (0.0-0.06); Absolute Basophil Count 0.02 10^3/uL (0.0-0.2); Absolute Eosinophil Count 0.11 10^3/uL (0.0-0.7); Absolute Lymphocyte Count 0.94 10^3/uL (1.2-3.4); Absolute Monocyte Count 0.51 10^3/uL (0.1-0.8); Absolute Neutrophil Count 5.76 10^3/uL (1.2-6.7); Basophils % 0.3 %; Eosinophils % 1.5 %; HCT 43.8 % (40.0-50.0); Immature Grans % 0.8 %; Lymphocytes % 12.7 %; MCH 30.7 pg (27.0-33.0); MCHC 34.2 % (32.0-36.0); MCV 90 fL (80-95); MPV 10.6 fL (8.0-11.0); Monocytes % 6.9 %; Neutrophils % 77.8 %; Platelet Count 141 10^3/uL (130-400); RBC 4.89 10^6/uL (4.36-5.78); RDW-SD 42.5 fL
[2024-05-11 14:47] LABS: ALT 59 U/L (16-63); AST 41 U/L (15-37); Albumin 3.5 g/dL (3.4-5.0); Alkaline Phosphatase 132 U/L (46-116); Anion Gap 9.7 mmol/L (3-11); BUN 27 mg/dL (7-18); CO2 25.3 mmol/L (21.0-32.0); CREATININE 2.2 mg/dL (0.70-1.30); Calcium 9.8 mg/dL (8.5-10.1); Chloride 108 mmol/L (98-107); Estimated GFR 30.47 (mL/min/1.73m2); Ferritin 204 ng/mL (26-388); Glucose 191 mg/dL (74-106); Potassium 4.5 mmol/L (3.5-5.1); Sodium 143 mmol/L (136-145); Total Protein 7.9 g/dL (6.4-8.2); Vitamin B12 910 pg/mL (193-986); Vitamin D 25 Total 55.8 ng/mL (30-100)
[2024-05-11 14:48] LABS: Folate > 20.0 ng/mL (8.6-20.0)
[2024-05-11 14:50] LABS: Iron 66 ug/dL (65-175); Total Iron Binding Capacity 329 ug/dL (250-450); Transferrin Sat 20 % (20-55)
[2024-05-11 17:33] LABS: Hemoglobin A1C 7.9 % (<5.7)
[2024-05-11 21:31] LABS: CRP, High Sensitivity 9.07 mg/L (See Note)
[2024-05-11 22:50] LABS: Homocysteine 12.7 umol/L (5.0-13.9)
[2024-05-13 10:47] LABS: Apolipoprotein A1, S 117 mg/dL (>=120); Apolipoprotein B, S 93 mg/dL (See Comment); Apolipoprotein B/A 1 ratio 0.8 (See Comment)
== END 2024-05-11 02:39 | disposition home or self-care (01) ==
LOC: LBO 02:38
PROVIDERS: PCP Family Medicine; Visit Provider Naturopath
DX: E11.9 Type 2 diabetes mellitus without complications (principal); E55.9 Vitamin D deficiency, unspecified; R53.83 Other fatigue; E78.5 Hyperlipidemia, unspecified
CPT/HCPCS: 36415; 80053; 82172; 82306; 83090; 86141; 82607; 82728; 82746; 83036; 83540; 83550; 85025

== ENCOUNTER 2024-05-26 01:49 | Outpatient (CLI) | payer MEDICARE, SELFPAY ==
--- NOTE | 2024-05-26 06:45 | DI.US_ITS ---
Exam(s) US AAA SCREENING EXAM: US AAA SCREENING CLINICAL HISTORY: ? aaa (> 65, male, Fam Hx),screening,z13.6,family h/o aaa COMPARISON: Prior lumbar spine MRI 04/10/2022 was reviewed. Field of view of this MRI included the entire abdominal aorta. FINDINGS: There is no evidence of abdominal aortic aneurysm. Maximum diameter of the abdominal aorta is 2.3 cm , proximally. The abdominal aorta diameter tapers normally distally. Diameter of both common iliac arteries are upper normal and unchanged from the 2022 study. IMPRESSION: No evidence of abdominal aortic aneurysm. DATA REPOSITORY:
== END 2024-05-26 02:09 ==
LOC: DI 01:49
PROVIDERS: PCP Family Medicine; Visit Provider Student in an Organized Health Care Education/Training Program
DX: Z13.6 Encounter for screening for cardiovascular disorders (principal)
CPT/HCPCS: 76706

== ENCOUNTER 2024-06-24 11:06 | Outpatient (CLI) | payer MEDICARE, SELFPAY ==
--- NOTE | 2024-06-24 09:22 | DI.RAD_ITS ---
Exam(s) XR HIP LT COMPLETE AP PELVIS EXAM: XR HIP LT COMPLETE AP PELVIS CLINICAL HISTORY: left hip pain. TECHNIQUE: 2D digital imaging was performed of the left hip. Two views were obtained. AP pelvis an d lateral left hip views were obtained. COMPARISON: CR XR HIP RT AP LAT ONLY from 02/05/2022 CR XR PELVIS W OBLIQUES 3V from 02/05/2022 FINDINGS: BONES: No acute fracture is present. No bony destructive lesion is seen. JOINTS: No dislocation present. Moderately severe degenerative changes are seen in the left hip tawny cterized by joint space narrowing and osteophytes. SOFT TISSUE: Vascular calcifications are present. IMPRESSION: Moderately severe degenerative changes of the left hip. Unremarkable radiographs of the pelvis DATA REPOSITORY: RADIATION DOSE DELIVERED:
== END 2024-06-24 11:07 | disposition home or self-care (01) ==
LOC: DIORS 11:06
PROVIDERS: PCP Family Medicine; Referring Provider Family Medicine; Visit Provider Physician Assistant
DX: M16.12 Unilateral primary osteoarthritis, left hip
CPT/HCPCS: 20611; 99214; J1010; 73502

== ENCOUNTER → 2024-07-13 13:24 | Outpatient (BNVA) | payer MEDICARE, SELFPAY | PROVIDERS: PCP Family Medicine; Referring Provider Family Medicine; Visit Provider Physician Assistant | DX: M16.11 Unilateral primary osteoarthritis, right hip (principal) | CPT/HCPCS: 20611; J1010 ==

== ENCOUNTER 2024-08-02 13:02 | Outpatient (CLI) | payer MEDICARE, SELFPAY ==
[2024-08-02 13:38] LABS: Abs Immature Grans 0.04 10^3/uL (0.0-0.06); Absolute Basophil Count 0.06 10^3/uL (0.0-0.2); Absolute Eosinophil Count 0.26 10^3/uL (0.0-0.7); Absolute Lymphocyte Count 1.61 10^3/uL (1.2-3.4); Absolute Monocyte Count 0.51 10^3/uL (0.1-0.8); Absolute Neutrophil Count 5.78 10^3/uL (1.2-6.7); Basophils % 0.7 %; Eosinophils % 3.1 %; HCT 40.5 % (40.0-50.0); HGB 14.1 g/dL (13.5-17.5); Immature Grans % 0.5 %; Lymphocytes % 19.5 %; MCHC 34.8 % (32.0-36.0); MCV 89 fL (80-95); MPV 10.5 fL (8.0-11.0); Monocytes % 6.2 %; Platelet Count 171 10^3/uL (130-400); RBC 4.55 10^6/uL (4.36-5.78); RDW-SD 42.3 fL; WBC 8.26 10^3/uL (4.4-10.8)
[2024-08-02 13:41] LABS: ESR 48 mm/hr (0-20)
[2024-08-02 13:44] LABS: Bilirubin Negative (Negative); Blood Moderate (Negative); Clarity Clear (Clear); Glucose Negative (Negative); Ketones Negative (Negative); Leukocyte Esterase Trace (Negative); Nitrite Negative (Negative); Specific Gravity 1.015 (1.005-1.025); Urobilinogen 0.2 mg/dL (Up to 0.2); pH 5.5 (5-8)
[2024-08-02 14:24] LABS: ALT 48 U/L (16-63); AST 35 U/L (15-37); Albumin 3.8 g/dL (3.4-5.0); Alkaline Phosphatase 141 U/L (46-116); Amylase 42 U/L (25-115); Anion Gap 12.2 mmol/L (3-11); BUN 76 mg/dL (7-18); Bilirubin, Total 0.8 mg/dL (0.2-1.0); C-Reactive Protein 0.65 mg/dL (<or=0.5); CO2 18.8 mmol/L (21.0-32.0); Calcium 9.5 mg/dL (8.5-10.1); Chloride 108 mmol/L (98-107); Estimated GFR 14.03 (mL/min/1.73m2); Ferritin 367 ng/mL (26-388); Glucose 158 mg/dL (74-106); Potassium 5.5 mmol/L (3.5-5.1); Sodium 139 mmol/L (136-145); Total Protein 8.3 g/dL (6.4-8.2)
[2024-08-02 14:34] LABS: CREATININE 4.2 mg/dL (0.70-1.30)
[2024-08-02 14:51] LABS: Lipase 82 U/L (<78)
[2024-08-02 21:19] LABS: Iron 106 ug/dL (65-175); Total Iron Binding Capacity 335 ug/dL (250-450); Transferrin Sat 32 % (20-55)
== END 2024-08-02 13:03 | disposition home or self-care (01) ==
LOC: LBO 13:02
PROVIDERS: PCP Family Medicine; Visit Provider Naturopath
DX: R53.81 Other malaise (principal); R10.12 Left upper quadrant pain
CPT/HCPCS: 36415; 80053; 83690; 85652; 81003; 82150; 82728; 83540; 83550; 85025; 86140

== ENCOUNTER 2024-08-08 04:17 | Outpatient (CLI) | payer MEDICARE, SELFPAY ==
[2024-08-08 15:40] LABS: Hemoglobin A1C 6.8 % (<5.7)
[2024-08-08 16:11] LABS: BUN 39 mg/dL (7-18); CREATININE 2.1 mg/dL (0.70-1.30); Calcium 9.6 mg/dL (8.5-10.1); Chloride 107 mmol/L (98-107); Estimated GFR 32.22 (mL/min/1.73m2); Glucose 218 mg/dL (74-106); Potassium 4.8 mmol/L (3.5-5.1); Sodium 142 mmol/L (136-145)
[2024-08-08 16:40] LABS: Vitamin D 25 Total 62 ng/mL (30-100)
== END 2024-08-08 04:18 | disposition home or self-care (01) ==
LOC: LBO 04:17
PROVIDERS: Naturopath; Registered Nurse Critical Care Medicine; PCP Family Medicine; Visit Provider Family Medicine
DX: E11.65 Type 2 diabetes mellitus with hyperglycemia (principal); E55.9 Vitamin D deficiency, unspecified
CPT/HCPCS: 36415; 80048; 82306; 83036

== ENCOUNTER 2024-08-18 03:17 | Outpatient (CLI) | payer MEDICARE, SELFPAY ==
[2024-08-18 12:26] LABS: BUN 33 mg/dL (7-18); CREATININE 1.7 mg/dL (0.70-1.30); Calcium 9.3 mg/dL (8.5-10.1); Chloride 107 mmol/L (98-107); Estimated GFR 41.52 (mL/min/1.73m2); Glucose 175 mg/dL (74-106); Potassium 4.3 mmol/L (3.5-5.1); Sodium 143 mmol/L (136-145)
[2024-08-18 12:40] LABS: Hemoglobin A1C 7.1 % (<5.7)
== END 2024-08-18 03:18 | disposition home or self-care (01) ==
LOC: LBO 03:17
PROVIDERS: PCP Family Medicine
DX: E11.65 Type 2 diabetes mellitus with hyperglycemia (principal); E87.5 Hyperkalemia; Z79.4 Long term (current) use of insulin
CPT/HCPCS: 36415; 80048; 83036

== ENCOUNTER 2024-08-24 09:10 | Outpatient (REF) | payer MEDICARE, SELFPAY | END 2024-08-24 09:11 | disposition home or self-care (01) | LOC: LBN 09:10 | PROVIDERS: PCP Family Medicine; Visit Provider Urology | DX: N20.0 Calculus of kidney (principal) | CPT/HCPCS: 87077; 87086; 87186 ==

== ENCOUNTER 2024-11-08 02:11 | Outpatient (CLI) | payer MEDICARE, SELFPAY ==
[2024-11-08 11:26] LABS: HCT 38.1 % (40.0-50.0); HGB 12.9 g/dL (13.5-17.5); MCH 30.2 pg (27.0-33.0); MCHC 33.9 % (32.0-36.0); MCV 89 fL (80-95); MPV 10.7 fL (8.0-11.0); Platelet Count 126 10^3/uL (130-400); RBC 4.27 10^6/uL (4.36-5.78); RDW 12.8 % (11.8-14.1); RDW-SD 41.7 fL; WBC 5.32 10^3/uL (4.4-10.8)
[2024-11-08 11:49] LABS: Ferritin 107 ng/mL (26-388)
== END 2024-11-08 02:12 | disposition home or self-care (01) ==
LOC: LBO 02:11
PROVIDERS: PCP Family Medicine; Visit Provider Family Medicine
DX: E83.118 Other hemochromatosis (principal)
CPT/HCPCS: 36415; 85027; 82728

== ENCOUNTER → 2024-11-25 08:59 | Outpatient (BNVA) | payer MEDICARE, SELFPAY | PROVIDERS: PCP Family Medicine; Referring Provider Family Medicine; Visit Provider Physician Assistant | DX: M16.11 Unilateral primary osteoarthritis, right hip (principal) | CPT/HCPCS: 20611; J1010 ==

== ENCOUNTER → 2024-12-09 09:20 | Outpatient (BNVA) | payer MEDICARE, SELFPAY | PROVIDERS: PCP Family Medicine; Referring Provider Family Medicine; Visit Provider Physician Assistant | DX: M17.12 Unilateral primary osteoarthritis, left knee (principal); M16.11 Unilateral primary osteoarthritis, right hip; M70.61 Trochanteric bursitis, right hip | CPT/HCPCS: 20610; J1010 ==